=== PATIENT | female | born 1935 | race Caucasian/White ===

== ENCOUNTER 2022-05-13 11:24 | Inpatient (IN) | payer MEDICARE, OTHER, SELFPAY ==
[2022-05-13] VITALS (9 sets, daily range): BP systolic 94–169; BP diastolic 48–81; PULSE 101–120; RESP 15–28; TEMP 36.6–38.7; O2SAT 93–98; BMI 43.0
--- NOTE | ~2022-05-13 | XR_ITS ---
EXAMINATION: XR CHEST CLINICAL INFORMATION: Chest pain COMPARISON: None TECHNIQUE: 2 views of the chest were obtained. FINDINGS: The lungs are well expanded. There is no focal consolidation, edema, or effusion. No pneumothorax. The cardiomediastinal silhouette is within normal limits. No acute osseous abnormality. XR/XR chest 2V IMPRESSION: Clear lungs.
--- NOTE | ~2022-05-13 | CT_ITS ---
EXAMINATION: CT ABDOMEN AND PELVIS WITHOUT CONTRAST CLINICAL INFORMATION: Abdominal pain and diarrhea COMPARISON: None TECHNIQUE: Multidetector volumetric imaging was performed from the superior aspect of the liver through the pubic symphysis. Sagittal and coronal reformatted images were obtained on the technologist's workstation. This CT examination was performed using dose optimization techniques as appropriate, variously including the following: *Automated exposure control *Adjustment of mA and/or kV according to patient size (this includes techniques or standardized protocols for targeted exams where dose is matched to indication/reason for exam; i.e. extremities or head) *Use of iterative reconstruction technique DLP: 671 mGy-cm FINDINGS: LUNG BASES: Small patchy airspace consolidation and adjacent ill-defined nodular opacities in the peripheral right lower lobe additional smaller cluster of ill-defined nodular opacities in the left lung base, likely infectious/inflammatory. Minimal bibasilar subsegmental atelectasis. LIVER, GALLBLADDER, AND BILIARY TREE: The liver is normal in size, shape, and attenuation. No focal hepatic lesion. Status post cholecystectomy. Extra hepatic bile duct is dilated up to 1.4 cm proximally and tapers down to 1 cm more distally in the more distal pancreatic segment. No calcified CBD stone. No significant intrahepatic biliary ductal dilation. No comparisons available to assess for change. Correlate with LFTs for clinical significance. PANCREAS: Mildly atrophic. No pancreatic lesion or peripancreatic inflammatory change. SPLEEN: Unremarkable. ADRENAL GLANDS: Unremarkable. KIDNEYS AND URETERS: Small low-density probable cyst in the left mid pole, too small to characterize. No imaging follow-up recommended. No other renal lesions. No renal calculi or hydronephrosis. BLADDER: The bladder wall thickening. Small bubble of gas in the bladder, presumably iatrogenic. Correlate with recent catheterization. No surrounding perivesicular fat stranding. GASTROINTESTINAL TRACT: Extensive colonic diverticulosis most marked involving the sigmoid colon. No evidence of acute diverticulitis. No dilated bowel loops or bowel wall thickening. There is a overall moderate amount of formed stool in the colon. Small duodenal diverticulum at the level of the pancreatic head. Appendix not visualized. No inflammatory change the base of the cecum. No ascites or free air. ABDOMINAL WALL: No significant hernia is appreciated. LYMPH NODES: No lymphadenopathy. VASCULAR: Normal caliber abdominal aorta. Mild vascular calcifications. PELVIC VISCERA: Status post hysterectomy. OSSEOUS STRUCTURES: No acute fracture or suspicious osseous lesion. Grade 1 anterolisthesis at L4-L5 secondary to advanced facet arthrosis. Disc degenerative changes most marked at L4-L5 and L5-S1. CT/CT abdomen pelvis wo IV con IMPRESSION: 1. Extensive colonic diverticulosis. No evidence of acute diverticulitis or other acute intra-abdominal process. 2. Patchy airspace consolidation and adjacent ill-defined nodular opacities in the right lower lobe and smaller cluster of ill-defined nodular opacities in the left lung base, likely infectious/inflammatory. Correlate clinically with signs or symptoms of pneumonia. 3. Status post cholecystectomy. Extra hepatic bile duct dilation, as described. Correlate with LFTs for clinical significance. 4. Additional chronic findings, as described.
--- NOTE | ~2022-05-13 | CT_ITS ---
EXAMINATION: CT CHEST WITHOUT CONTRAST CLINICAL INFORMATION: Shortness of breath, tachypnea, tachycardia, and fever COMPARISON: Chest x-ray performed earlier the same day TECHNIQUE: Multidetector volumetric CT imaging of the chest was done. Axial MIP volume rendering provided. Sagittal and coronal reformatted images were obtained. This CT examination was performed using dose optimization techniques as appropriate, variously including the following: *Automated exposure control *Adjustment of mA and/or kV according to patient size (this includes techniques or standardized protocols for targeted exams where dose is matched to indication/reason for exam; i.e. extremities or head) *Use of iterative reconstruction technique DLP: 298 mGy-cm FINDINGS: LUNGS: Patchy consolidative opacity in the lateral inferior right lung base/costophrenic angle. There are numerous additional patchy/nodular groundglass and/or small consolidative opacities scattered within the bilateral upper and lower lobes as well suspicious for multifocal pneumonia, please see ocampo images for examples. No cavitary lesions. No other areas of confluent airspace consolidation. No appreciable emphysematous change. Central through segmental airways are clear. MEDIASTINUM: No cardiomegaly or pericardial effusion. Normal caliber thoracic aorta. No aneurysm. Mild aortic vascular calcifications. Normal caliber main pulmonary arteries. Small nonpathologically enlarged mediastinal lymph nodes. No mediastinal or hilar lymphadenopathy by size criteria. Largest lymph node is a 0.9 cm right paratracheal node. CORONARY ARTERY CALCIFICATION: Mild three-vessel coronary artery vascular calcifications present. PLEURA: No pleural effusion or pneumothorax. AXILLA: No lymphadenopathy. UPPER ABDOMEN: Status post cholecystectomy. Extra hepatic bile ducts dilated up to 1.4 cm in diameter proximally. No significant intrahepatic biliary ductal dilation identified. Mild to moderate fatty atrophy of the pancreas. Visualized upper abdominal viscera is unremarkable. Possible small hiatal hernia. OSSEOUS STRUCTURES: No acute fracture or suspicious osseous lesion. Partial ankylosis the anterior aspect of the T6-T8 vertebral bodies. Mild multilevel degenerative disc disease in the thoracic spine. Mildly exaggerated thoracic kyphosis. CT/CT chest wo IV con IMPRESSION: 1. Patchy consolidative opacity in the lateral inferior right lung base and numerous additional patchy/nodular groundglass and/or small consolidative opacities scattered throughout the bilateral upper and lower lobes, suspicious for multifocal infection/pneumonia. No cavitary lesions to suggest more specific evidence of septic emboli. 2. No pleural effusion. 3. Status post cholecystectomy with dilated extra hepatic bile ducts. Correlate with LFTs for clinical significance.
--- NOTE | 2022-05-13 11:31 | ECG_ITS ---
Test Reason : cp Blood Pressure : / mmHG Vent. Rate : 103 BPM Atrial Rate : 103 BPM P-R Int : 132 ms QRS Dur : 074 ms QT Int : 344 ms P-R-T Axes : 052 024 044 degrees QTc Int : 450 ms Sinus tachycardia Nonspecific ST and T wave abnormality Abnormal ECG No previous ECGs available Referred By: Generic ED Physician Electronically Signed By:ALEXANDRA TERRAZAS MD
--- NOTE | 2022-05-13 11:37 | ED.GENADULT ---
HPI - General Adult General Chief complaint: Dyspnea <JUANITA Brady - Last Filed: 05/13/22 11:44> Stated complaint: CP Dizziness Diff Breathing <JUANITA Brady - Last Filed: 05/13/22 11:44> Time Seen by Provider: 05/13/22 15:18 <JUANITA Brady - Last Filed: 05/13/22 11:44> Source: patient and family (Daughter) <Angélica Daly MD - Last Filed: 05/13/22 18:32> Mode of arrival: ambulatory <Angélica Daly MD - Last Filed: 05/13/22 18:32> History of Present Illness HPI narrative: 86-year-old female who presents with increasing dyspnea on exertion, orthopnea, she stop taking her Lasix approximately 1 week ago but complains of worsening bilateral ankle edema. Patient also reports cough and does have a history of asthma. Otherwise, she denies any fever, chills, GI or symptoms. <Angélica Daly MD - Last Filed: 05/13/22 18:32> Related Data Allergies/adverse reactions: Allergies Allergy/AdvReac Type Severity Reaction Status Date / Time aspirin [ASPIRIN] Allergy Intermediate BURNING Unverified 12/19/19 16:02 STOMACH lisinopril [LISINOPRIL] Allergy Unknown COUGH Unverified 12/19/19 16:02 penicillin V Allergy Unknown Verified 08/20/14 00:00 Penicillins [PCN] Allergy Unknown UNK Unverified 12/19/19 16:02 sulfamethoxazole Allergy Unknown UNKNOWN Unverified 12/19/19 16:02 [From BACTRIM] trimethoprim [From BACTRIM] Allergy Unknown UNKNOWN Unverified 12/19/19 16:02 <JUANITA Brady - Last Filed: 05/13/22 11:44> Review of Systems Review of Systems: Pertinent positives and negatives as stated in HPI <Angélica Daly MD - Last Filed: 05/13/22 18:32> PMFSH Past Medical History Source: nursing notes reviewed <Angélica Daly MD - Last Filed: 05/13/22 18:32> Social History Social History: Social History Alcohol intake: never Smoked in Last 30 Days: No Advance Directives: Yes Advance Directives on File: Yes Advance Directives Date on File: 05/13/22 <JUANITA Brady - Last Filed: 05/13/22 11:44> Physical Exam ED Vital Signs: Vital Signs - 24 hr 05/13/22 11:37 05/13/22 14:39 05/13/22 15:29 Temperature 98 F 98.6 F Pulse Rate 106 H 101 H 108 H Respiratory Rate 20 16 15 Blood Pressure 160/48 H 168/80 H Pulse Oximetry 96 98 Oxygen Delivery Method Room Air Room Air 05/13/22 15:39 05/13/22 16:27 05/13/22 18:00 Temperature 98.7 F 99.6 F Pulse Rate 104 H 120 H 111 H Respiratory Rate 16 28 H 16 Blood Pressure 169/81 H 153/69 H 146/57 H Pulse Oximetry 97 96 94 Oxygen Delivery Method Room Air Room Air Room Air BMI result Body Mass Index 43.0 <JUANITA Brady - Last Filed: 05/13/22 11:44> Vital Signs - 24 hr 05/13/22 11:37 05/13/22 14:39 05/13/22 15:29 Temperature 98 F 98.6 F Pulse Rate 106 H 101 H 108 H Respiratory Rate 20 16 15 Blood Pressure 160/48 H 168/80 H Pulse Oximetry 96 98 Oxygen Delivery Method Room Air Room Air 05/13/22 15:39 05/13/22 16:27 05/13/22 18:00 Temperature 98.7 F 99.6 F Pulse Rate 104 H 120 H 111 H Respiratory Rate 16 28 H 16 Blood Pressure 169/81 H 153/69 H 146/57 H Pulse Oximetry 97 96 94 Oxygen Delivery Method Room Air Room Air Room Air BMI result Body Mass Index 43.0 VITAL SIGNS: Reviewed. GENERAL: Well developed, well nourished, in no acute distress. HEAD: Normocephalic/atraumatic EYES: PERRLA, EOMI EARS: Ext canals without abnormality OROPHARYNX: no oral lesions noted, posterior pharynx clear LUNGS: Obvious tachypnea with difficulty completing entire sentences, coarse rales noted to mid bilateral chest/crackles. SpO2<96> CARDIOVASCULAR: Regular rate and rhythm without noted murmurs, no JVD but bilateral lower extremity 1+ pitting edema ABDOMEN: Soft, non-tender, non-distended with bowel sounds. MUSCULOSKELETAL: No tenderness, deformities, or effusions noted on gross inspection. EXTREMITIES: No cyanosis, clubbing or edema. SKIN: Inspection of the skin reveals no rashes NEUROLOGIC: Alert and oriented x 4. Strength and sensation to light touch were grossly intact x 4. <Angélica Daly MD - Last Filed: 05/13/22 18:32> Course Course Course Narrative: RME- 11:35am 86yoF c PMHX of anemia, hypothyroidism, asthma, HTN and CHF who is presenting to the ED c c/o of URI symptoms which include chills, fatigues, malaise, cough with sputum production, with chest tightness, SOB, HUTCHINS, orthopnea, leg swelling x 1 week worse today. Apparently daughter and had similar symptoms and were diagnosed RSV. Although patient reports that she has not been taking her water pill for the past week ?I haven't been taking it because then I have to go to the bathroom too much while I'm in [place]?. On exam patient has decreased breath sounds although oxygen saturation 96% on room air. Otherwise all other vitals are within normal limits. Patient noted to have wheezes. No rales/rhonchi noted. No accessory muscle use is noted. Although patient is noted to have +2 lower extremity pitting edema. CV RRR. Plan: Labs, EKG, COVID/RSV/flu swab and chest x-ray ordered at this time. Patient will be sent back to the waiting room to be evaluated in the ED. <JUANITA Brady - Last Filed: 05/13/22 11:44> Medications Administered Discontinued Medications Generic Name Dose Route Start Last Admin Trade Name Frecara PRN Reason Stop Dose Admin Albuterol Sulfate 5 mg 05/13/22 15:18 05/13/22 15:26 Albuterol Sulfate (0.083%) 2.5 Mg/3 Ml Vial.Neb INHALE 05/13/22 15:19 5 mg ONCE ONE Administration Furosemide 60 mg 05/13/22 16:09 05/13/22 16:26 Furosemide 100 Mg/10 Ml Vial IVPUSH 05/13/22 16:10 60 mg ONCE ONE Administration Protocol <JUANITA Brady - Last Filed: 05/13/22 11:44> Medications Administered Discontinued Medications Generic Name Dose Route Start Last Admin Trade Name Patoq PRN Reason Stop Dose Admin Albuterol Sulfate 5 mg 05/13/22 15:18 05/13/22 15:26 Albuterol Sulfate (0.083%) 2.5 Mg/3 Ml Vial.Neb INHALE 05/13/22 15:19 5 mg ONCE ONE Administration Furosemide 60 mg 05/13/22 16:09 05/13/22 16:26 Furosemide 100 Mg/10 Ml Vial IVPUSH 05/13/22 16:10 60 mg ONCE ONE Administration Protocol <Angélica Daly MD - Last Filed: 05/13/22 18:32> Medical Decision Making Medical Decision Making MDM Narrative: 86-year-old female who presents with worsening dyspnea on exertion and all clinical history is consistent with CHF exacerbation, BNP is elevated and there is bilateral lower extremity edema. Although the chest x-ray is read as clear lungs? I do not agree with this. Patient given 60 mg of Lasix, patient did also receive a DuoNeb treatment. Suspect that the leukocytosis is associated with stress/reactive response as patient is afebrile. <Angélica Daly MD - Last Filed: 05/13/22 18:32> Differential Diagnosis Differential Diagnoses: The differential diagnosis associated with the presentation includes <Angélica Daly MD - Last Filed: 05/13/22 18:32> Please see the discussion above <Angélica Daly MD - Last Filed: 05/13/22 18:32> Consult Healthcare Provider Management of the patient was discussed with: Hospitalist <Angélica Daly MD - Last Filed: 05/13/22 18:32> 1730: I discussed with the inpatient hospitalist who accepts admission. <Angélica Daly MD - Last Filed: 05/13/22 18:32> Lab Data [facility] Lab Attestation statement: I reviewed the patient's lab results. <Angélica Daly MD - Last Filed: 05/13/22 18:32> Please see the discussion above <Angélica Daly MD - Last Filed: 05/13/22 18:32> Result Diagrams: 05/13/22 11:47 05/13/22 11:47 <JUANITA Brady - Last Filed: 05/13/22 11:44> Labs: Lab Results 05/13/22 05/13/22 05/13/22 Range/Units 11:47 11:47 11:47 WBC 15.2 H (4.8-10.8) X10*3/uL RBC 3.37 L (4.20-5.50) X10*6/uL Hgb 11.0 L (12.0-16.0) g/dl Hct 33.8 L (37.0-47.0) % MCV 100.3 H (80.0-98.0) fL MCH 32.6 (27.0-33.0) pg MCHC 32.5 (31.0-35.0) g/dl RDW 12.1 (11.0-16.0) % Plt Count 217 (160-400) X10*3/uL MPV 10.9 (9.4-12.3) fL Immature Gran % (Auto) 0.4 (0.0-0.4) % Neut % (Auto) 78.3 H (45-73) % Lymph % (Auto) 12.3 L (20-40) % [place] % (Auto) 8.4 (2-11) % Eos % (Auto) 0.1 (0-4) % Baso % (Auto) 0.5 (0-2) % Lymph # (Auto) 1.9 (1.2-4.9) X10*3/uL [place] # (Auto) 1.3 H (0.1-1.2) X10*3/uL Eos # (Auto) 0.0 (0.0-0.4) X10*3/uL Baso # (Auto) 0.1 (0.0-0.2) X10*3/uL Abs Immat Gran (auto) 0.06 H (0.00-0.03) X10*3/uL Absolute Neuts (auto) 11.9 H (2.0-8.3) x10*3/uL Absolute Nucleated RBC 0.000 (0.0-0.012) X10*3/uL Nucleated RBC % (auto) 0.0 (0.0-0.2) /100WBC PT 13.1 (10.0-13.1) SEC INR 1.1 (0.9-1.1) Sodium 140 (135-145) mmol/L Potassium 4.3 (3.3-5.1) mmol/L Chloride 106 (96-108) mmol/L Carbon Dioxide 24 (22-29) mmol/L Anion Gap 14 (12-20) BUN 11 (9-16) mg/dL Creatinine 0.72 (0.5-1.4) mg/dL Estim Creat Clear Calc 58.4 Estimated GFR > 60 Random Glucose 124 H (60-115) mg/dL Calcium 9.2 (8.4-10.2) mg/dL Magnesium 1.6 (1.6-2.6) mg/dL Total Bilirubin 1.2 H (0.0-1.0) mg/dL AST 19 (5-31) U/L ALT 11 (0-31) U/L Alkaline Phosphatase 78 (39-117) U/L Troponin I High Sens (<3.5-17.0) ng/L B-Natriuretic Peptide (<100) pg/mL Total Protein 6.9 (6.5-8.0) g/dL Albumin 3.7 (3.5-5.0) g/dL Urine Color Urine Appearance Urine pH (5.0-9.0) Ur Specific [place] (1.005-1.025) Urine Protein (Neg-Trace) mg/dL Urine Glucose (UA) (Negative) mg/dL Urine Ketones (Negative) mg/dL Urine Blood (Negative) Urine Nitrite (Negative) Ur Leukocyte Esterase (Negative) Urine RBC (0-2) /HPF Urine WBC (0-5) /HPF Ur Squamous Epith Cells (0-2) /HPF Urine Bacteria (None Seen) Hyaline Casts (0-2) /LPF Influenza Type A (PCR) (Negative) Influenza Type B (PCR) (Negative) RSV RNA Qual (PCR) (Negative) SARS-CoV-2 RNA (RT-PCR) (Negative) 05/13/22 05/13/22 05/13/22 Range/Units 11:47 11:47 11:47 WBC (4.8-10.8) X10*3/uL RBC (4.20-5.50) X10*6/uL Hgb (12.0-16.0) g/dl Hct (37.0-47.0) % MCV (80.0-98.0) fL MCH (27.0-33.0) pg MCHC (31.0-35.0) g/dl RDW (11.0-16.0) % Plt Count (160-400) X10*3/uL MPV (9.4-12.3) fL Immature Gran % (Auto) (0.0-0.4) % Neut % (Auto) (45-73) % Lymph % (Auto) (20-40) % [place] % (Auto) (2-11) % Eos % (Auto) (0-4) % Baso % (Auto) (0-2) % Lymph # (Auto) (1.2-4.9) X10*3/uL [place] # (Auto) (0.1-1.2) X10*3/uL Eos # (Auto) (0.0-0.4) X10*3/uL Baso # (Auto) (0.0-0.2) X10*3/uL Abs Immat Gran (auto) (0.00-0.03) X10*3/uL Absolute Neuts (auto) (2.0-8.3) x10*3/uL Absolute Nucleated RBC (0.0-0.012) X10*3/uL Nucleated RBC % (auto) (0.0-0.2) /100WBC PT (10.0-13.1) SEC INR (0.9-1.1) Sodium (135-145) mmol/L Potassium (3.3-5.1) mmol/L Chloride (96-108) mmol/L Carbon Dioxide (22-29) mmol/L Anion Gap (12-20) BUN (9-16) mg/dL Creatinine (0.5-1.4) mg/dL Estim Creat Clear Calc Estimated GFR Random Glucose (60-115) mg/dL Calcium (8.4-10.2) mg/dL Magnesium (1.6-2.6) mg/dL Total Bilirubin (0.0-1.0) mg/dL AST (5-31) U/L ALT (0-31) U/L Alkaline Phosphatase (39-117) U/L Troponin I High Sens 8.9 (<3.5-17.0) ng/L B-Natriuretic Peptide 288 H (<100) pg/mL Total Protein (6.5-8.0) g/dL Albumin (3.5-5.0) g/dL Urine Color Urine Appearance Urine pH (5.0-9.0) Ur Specific [place] (1.005-1.025) Urine Protein (Neg-Trace) mg/dL Urine Glucose (UA) (Negative) mg/dL Urine Ketones (Negative) mg/dL Urine Blood (Negative) Urine Nitrite (Negative) Ur Leukocyte Esterase (Negative) Urine RBC (0-2) /HPF Urine WBC (0-5) /HPF Ur Squamous Epith Cells (0-2) /HPF Urine Bacteria (None Seen) Hyaline Casts (0-2) /LPF Influenza Type A (PCR) NEGATIVE (Negative) Influenza Type B (PCR) NEGATIVE (Negative) RSV RNA Qual (PCR) NEGATIVE (Negative) SARS-CoV-2 RNA (RT-PCR) NEGATIVE (Negative) 05/13/22 05/13/22 Range/Units 15:38 17:31 WBC (4.8-10.8) X10*3/uL RBC (4.20-5.50) X10*6/uL Hgb (12.0-16.0) g/dl Hct (37.0-47.0) % MCV (80.0-98.0) fL MCH (27.0-33.0) pg MCHC (31.0-35.0) g/dl RDW (11.0-16.0) % Plt Count (160-400) X10*3/uL MPV (9.4-12.3) fL Immature Gran % (Auto) (0.0-0.4) % Neut % (Auto) (45-73) % Lymph % (Auto) (20-40) % [place] % (Auto) (2-11) % Eos % (Auto) (0-4) % Baso % (Auto) (0-2) % Lymph # (Auto) (1.2-4.9) X10*3/uL [place] # (Auto) (0.1-1.2) X10*3/uL Eos # (Auto) (0.0-0.4) X10*3/uL Baso # (Auto) (0.0-0.2) X10*3/uL Abs Immat Gran (auto) (0.00-0.03) X10*3/uL Absolute Neuts (auto) (2.0-8.3) x10*3/uL Absolute Nucleated RBC (0.0-0.012) X10*3/uL Nucleated RBC % (auto) (0.0-0.2) /100WBC PT (10.0-13.1) SEC INR (0.9-1.1) Sodium (135-145) mmol/L Potassium (3.3-5.1) mmol/L Chloride (96-108) mmol/L Carbon Dioxide (22-29) mmol/L Anion Gap (12-20) BUN (9-16) mg/dL Creatinine (0.5-1.4) mg/dL Estim Creat Clear Calc Estimated GFR Random Glucose (60-115) mg/dL Calcium (8.4-10.2) mg/dL Magnesium (1.6-2.6) mg/dL Total Bilirubin (0.0-1.0) mg/dL AST (5-31) U/L ALT (0-31) U/L Alkaline Phosphatase (39-117) U/L Troponin I High Sens 9.2 (<3.5-17.0) ng/L B-Natriuretic Peptide (<100) pg/mL Total Protein (6.5-8.0) g/dL Albumin (3.5-5.0) g/dL Urine Color Yellow Urine Appearance Clear Urine pH 5.5 (5.0-9.0) Ur Specific [place] <= 1.005 (1.005-1.025) Urine Protein Negative (Neg-Trace) mg/dL Urine Glucose (UA) Negative (Negative) mg/dL Urine Ketones Negative (Negative) mg/dL Urine Blood Negative (Negative) Urine Nitrite Negative (Negative) Ur Leukocyte Esterase Trace H (Negative) Urine RBC 3-5 H (0-2) /HPF Urine WBC 0-5 (0-5) /HPF Ur Squamous Epith Cells 0-2 (0-2) /HPF Urine Bacteria 2+ (None Seen) Hyaline Casts 0-2 (0-2) /LPF Influenza Type A (PCR) (Negative) Influenza Type B (PCR) (Negative) RSV RNA Qual (PCR) (Negative) SARS-CoV-2 RNA (RT-PCR) (Negative) <Jackelin Brooks, PA - Last Filed: 05/13/22 11:44> Lab Results 05/13/22 05/13/22 05/13/22 Range/Units 11:47 11:47 11:47 WBC 15.2 H (4.8-10.8) X10*3/uL RBC 3.37 L (4.20-5.50) X10*6/uL Hgb 11.0 L (12.0-16.0) g/dl Hct 33.8 L (37.0-47.0) % MCV 100.3 H (80.0-98.0) fL MCH 32.6 (27.0-33.0) pg MCHC 32.5 (31.0-35.0) g/dl RDW 12.1 (11.0-16.0) % Plt Count 217 (160-400) X10*3/uL MPV 10.9 (9.4-12.3) fL Immature Gran % (Auto) 0.4 (0.0-0.4) % Neut % (Auto) 78.3 H (45-73) % Lymph % (Auto) 12.3 L (20-40) % [place] % (Auto) 8.4 (2-11) % Eos % (Auto) 0.1 (0-4) % Baso % (Auto) 0.5 (0-2) % Lymph # (Auto) 1.9 (1.2-4.9) X10*3/uL [place] # (Auto) 1.3 H (0.1-1.2) X10*3/uL Eos # (Auto) 0.0 (0.0-0.4) X10*3/uL Baso # (Auto) 0.1 (0.0-0.2) X10*3/uL Abs Immat Gran (auto) 0.06 H (0.00-0.03) X10*3/uL Absolute Neuts (auto) 11.9 H (2.0-8.3) x10*3/uL Absolute Nucleated RBC 0.000 (0.0-0.012) X10*3/uL Nucleated RBC % (auto) 0.0 (0.0-0.2) /100WBC PT 13.1 (10.0-13.1) SEC INR 1.1 (0.9-1.1) Sodium 140 (135-145) mmol/L Potassium 4.3 (3.3-5.1) mmol/L Chloride 106 (96-108) mmol/L Carbon Dioxide 24 (22-29) mmol/L Anion Gap 14 (12-20) BUN 11 (9-16) mg/dL Creatinine 0.72 (0.5-1.4) mg/dL Estim Creat Clear Calc 58.4 Estimated GFR > 60 Random Glucose 124 H (60-115) mg/dL Calcium 9.2 (8.4-10.2) mg/dL Magnesium 1.6 (1.6-2.6) mg/dL Total Bilirubin 1.2 H (0.0-1.0) mg/dL AST 19 (5-31) U/L ALT 11 (0-31) U/L Alkaline Phosphatase 78 (39-117) U/L Troponin I High Sens (<3.5-17.0) ng/L B-Natriuretic Peptide (<100) pg/mL Total Protein 6.9 (6.5-8.0) g/dL Albumin 3.7 (3.5-5.0) g/dL Urine Color Urine Appearance Urine pH (5.0-9.0) Ur Specific [place] (1.005-1.025) Urine Protein (Neg-Trace) mg/dL Urine Glucose (UA) (Negative) mg/dL Urine Ketones (Negative) mg/dL Urine Blood (Negative) Urine Nitrite (Negative) Ur Leukocyte Esterase (Negative) Urine RBC (0-2) /HPF Urine WBC (0-5) /HPF Ur Squamous Epith Cells (0-2) /HPF Urine Bacteria (None Seen) Hyaline Casts (0-2) /LPF Influenza Type A (PCR) (Negative) Influenza Type B (PCR) (Negative) RSV RNA Qual (PCR) (Negative) SARS-CoV-2 RNA (RT-PCR) (Negative) 05/13/22 05/13/22 05/13/22 Range/Units 11:47 11:47 11:47 WBC (4.8-10.8) X10*3/uL RBC (4.20-5.50) X10*6/uL Hgb (12.0-16.0) g/dl Hct (37.0-47.0) % MCV (80.0-98.0) fL MCH (27.0-33.0) pg MCHC (31.0-35.0) g/dl RDW (11.0-16.0) % Plt Count (160-400) X10*3/uL MPV (9.4-12.3) fL Immature Gran % (Auto) (0.0-0.4) % Neut % (Auto) (45-73) % Lymph % (Auto) (20-40) % [place] % (Auto) (2-11) % Eos % (Auto) (0-4) % Baso % (Auto) (0-2) % Lymph # (Auto) (1.2-4.9) X10*3/uL [place] # (Auto) (0.1-1.2) X10*3/uL Eos # (Auto) (0.0-0.4) X10*3/uL Baso # (Auto) (0.0-0.2) X10*3/uL Abs Immat Gran (auto) (0.00-0.03) X10*3/uL Absolute Neuts (auto) (2.0-8.3) x10*3/uL Absolute Nucleated RBC (0.0-0.012) X10*3/uL Nucleated RBC % (auto) (0.0-0.2) /100WBC PT (10.0-13.1) SEC INR (0.9-1.1) Sodium (135-145) mmol/L Potassium (3.3-5.1) mmol/L Chloride (96-108) mmol/L Carbon Dioxide (22-29) mmol/L Anion Gap (12-20) BUN (9-16) mg/dL Creatinine (0.5-1.4) mg/dL Estim Creat Clear Calc Estimated GFR Random Glucose (60-115) mg/dL Calcium (8.4-10.2) mg/dL Magnesium (1.6-2.6) mg/dL Total Bilirubin (0.0-1.0) mg/dL AST (5-31) U/L ALT (0-31) U/L Alkaline Phosphatase (39-117) U/L Troponin I High Sens 8.9 (<3.5-17.0) ng/L B-Natriuretic Peptide 288 H (<100) pg/mL Total Protein (6.5-8.0) g/dL Albumin (3.5-5.0) g/dL Urine Color Urine Appearance Urine pH (5.0-9.0) Ur Specific [place] (1.005-1.025) Urine Protein (Neg-Trace) mg/dL Urine Glucose (UA) (Negative) mg/dL Urine Ketones (Negative) mg/dL Urine Blood (Negative) Urine Nitrite (Negative) Ur Leukocyte Esterase (Negative) Urine RBC (0-2) /HPF Urine WBC (0-5) /HPF Ur Squamous Epith Cells (0-2) /HPF Urine Bacteria (None Seen) Hyaline Casts (0-2) /LPF Influenza Type A (PCR) NEGATIVE (Negative) Influenza Type B (PCR) NEGATIVE (Negative) RSV RNA Qual (PCR) NEGATIVE (Negative) SARS-CoV-2 RNA (RT-PCR) NEGATIVE (Negative) 05/13/22 05/13/22 Range/Units 15:38 17:31 WBC (4.8-10.8) X10*3/uL RBC (4.20-5.50) X10*6/uL Hgb (12.0-16.0) g/dl Hct (37.0-47.0) % MCV (80.0-98.0) fL MCH (27.0-33.0) pg MCHC (31.0-35.0) g/dl RDW (11.0-16.0) % Plt Count (160-400) X10*3/uL MPV (9.4-12.3) fL Immature Gran % (Auto) (0.0-0.4) % Neut % (Auto) (45-73) % Lymph % (Auto) (20-40) % [place] % (Auto) (2-11) % Eos % (Auto) (0-4) % Baso % (Auto) (0-2) % Lymph # (Auto) (1.2-4.9) X10*3/uL [place] # (Auto) (0.1-1.2) X10*3/uL Eos # (Auto) (0.0-0.4) X10*3/uL Baso # (Auto) (0.0-0.2) X10*3/uL Abs Immat Gran (auto) (0.00-0.03) X10*3/uL Absolute Neuts (auto) (2.0-8.3) x10*3/uL Absolute Nucleated RBC (0.0-0.012) X10*3/uL Nucleated RBC % (auto) (0.0-0.2) /100WBC PT (10.0-13.1) SEC INR (0.9-1.1) Sodium (135-145) mmol/L Potassium (3.3-5.1) mmol/L Chloride (96-108) mmol/L Carbon Dioxide (22-29) mmol/L Anion Gap (12-20) BUN (9-16) mg/dL Creatinine (0.5-1.4) mg/dL Estim Creat Clear Calc Estimated GFR Random Glucose (60-115) mg/dL Calcium (8.4-10.2) mg/dL Magnesium (1.6-2.6) mg/dL Total Bilirubin (0.0-1.0) mg/dL AST (5-31) U/L ALT (0-31) U/L Alkaline Phosphatase (39-117) U/L Troponin I High Sens 9.2 (<3.5-17.0) ng/L B-Natriuretic Peptide (<100) pg/mL Total Protein (6.5-8.0) g/dL Albumin (3.5-5.0) g/dL Urine Color Yellow Urine Appearance Clear Urine pH 5.5 (5.0-9.0) Ur Specific [place] <= 1.005 (1.005-1.025) Urine Protein Negative (Neg-Trace) mg/dL Urine Glucose (UA) Negative (Negative) mg/dL Urine Ketones Negative (Negative) mg/dL Urine Blood Negative (Negative) Urine Nitrite Negative (Negative) Ur Leukocyte Esterase Trace H (Negative) Urine RBC 3-5 H (0-2) /HPF Urine WBC 0-5 (0-5) /HPF Ur Squamous Epith Cells 0-2 (0-2) /HPF Urine Bacteria 2+ (None Seen) Hyaline Casts 0-2 (0-2) /LPF Influenza Type A (PCR) (Negative) Influenza Type B (PCR) (Negative) RSV RNA Qual (PCR) (Negative) SARS-CoV-2 RNA (RT-PCR) (Negative) <Angélica Daly MD - Last Filed: 05/13/22 18:32> Independent Interpretation I performed an independent interpretation of an: EKG <Angélica Daly MD - Last Filed: 05/13/22 18:32> Interpretation: Sinus tachycardia, HR-103, no STEMI, [place]/QRS/QTC are within normal limits. <Angélica Daly MD - Last Filed: 05/13/22 18:32> Radiology Impression Radiologist Impression: I do not agree with radiologist's impression, my interpretation is that the chest x-ray is consistent with patchiness what would appear to be Nina B lines <Angélica Daly MD - Last Filed: 05/13/22 18:32> Independent Historian Clinical information obtained from an independent historian. History obtained from or confirmed by: Other <Angélica Daly MD - Last Filed: 05/13/22 18:32> Daughter <Angélica Daly MD - Last Filed: 05/13/22 18:32> Critical Care Time Critical Care Time Critical Care Time: Yes <Angélica Daly MD - Last Filed: 05/13/22 18:32> Total Critical Care Time: 30 <Angélica Daly MD - Last Filed: 05/13/22 18:32> Attestation: I personally attest to this time spent taking care of the patient. <Angélica Daly MD - Last Filed: 05/13/22 18:32> Discharge Plan Discharge Clinical Impression: CHF exacerbation <JUANITA Brady - Last Filed: 05/13/22 11:44> Patient Disposition: Admitted As Inpatient <JUANITA Brady - Last Filed: 05/13/22 11:44>
[2022-05-13 11:53] LABS: MANUAL DIFF FLAG NO
[2022-05-13 12:00] LABS: Basophils Absolute Auto 0.1 X10*3/uL (0.0-0.2); Basophils Percent Auto 0.5 % (0-2); Eosinophils Percent Auto 0.1 % (0-4); Hematocrit 33.8 % (37.0-47.0); INTERNATIONAL NORM RATIO 1.1 (0.9-1.1); Imm Gran Abs Auto 0.06 X10*3/uL (0.00-0.03); Imm Gran Pct Auto 0.4 % (0.0-0.4); Lymphocytes Absolute Auto 1.9 X10*3/uL (1.2-4.9); Lymphocytes Percent Auto 12.3 % (20-40); Mean Corpuscular HGB Conc 32.5 g/dl (31.0-35.0); Mean Corpuscular Hemoglobin 32.6 pg (27.0-33.0); Mean Corpuscular Volume 100.3 fL (80.0-98.0); Mean Platelet Volume 10.9 fL (9.4-12.3); Monocytes Absolute Auto 1.3 X10*3/uL (0.1-1.2); Monocytes Percent Auto 8.4 % (2-11); Neutrophils Absolute Auto 11.9 x10*3/uL (2.0-8.3); Neutrophils Percent Auto 78.3 % (45-73); Platelet Count 217 X10*3/uL (160-400); Prothrombin Time 13.1 SEC (10.0-13.1); Red Blood Count 3.37 X10*6/uL (4.20-5.50); Red Cell Distribution Width 12.1 % (11.0-16.0); White Blood Count 15.2 X10*3/uL (4.8-10.8)
[2022-05-13 12:25] LABS: Alanine Aminotransferase 11 U/L (0-31); Albumin Level 3.7 g/dL (3.5-5.0); Alkaline Phosphatase 78 U/L (39-117); Anion Gap 14 (12-20); Aspartate Amino Transferase 19 U/L (5-31); Bilirubin Total 1.2 mg/dL (0.0-1.0); Blood Urea Nitrogen 11 mg/dL (9-16); Calcium 9.2 mg/dL (8.4-10.2); Carbon Dioxide 24 mmol/L (22-29); Chloride 106 mmol/L (96-108); Creatinine Clr Calc Pharmacy 58.4; Estimated Glomerular Filt Rate > 60; Glucose Random 124 mg/dL (60-115); Magnesium 1.6 mg/dL (1.6-2.6); Potassium 4.3 mmol/L (3.3-5.1); Sodium 140 mmol/L (135-145); Total Protein 6.9 g/dL (6.5-8.0)
[2022-05-13 12:28] LABS: B Type Natriuretic Peptide 288 pg/mL (<100)
[2022-05-13 12:32] LABS: Troponin-I High Sensitivity 8.9 ng/L (<3.5-17.0)
[2022-05-13 12:41] LABS: Influenza A PCR NEGATIVE (Negative); Influenza B PCR NEGATIVE (Negative); Resp Syncy Virus RNA Qual PCR NEGATIVE (Negative); SARS COV2 PCR INHOUSE NEGATIVE (Negative)
[2022-05-13] MEDS: Albuterol Sulfate (0.083%) 2.5 MG/3 ML VIAL.NEB 5 MG INHALE (15:26)
--- NOTE | 2022-05-13 15:40 | MHC.EDTECH ---
this pct assumed care of pt at 1500 ,repeated trop drawn and send to lab ,vitals sign taken ,pt daughter at bedside ,pt having her breathing treatment and watching television ,call valencia within reach .
[2022-05-13 16:06] LABS: Troponin-I High Sensitivity 9.2 ng/L (<3.5-17.0)
--- NOTE | 2022-05-13 16:21 | MHC.EDTECH ---
Addendum entered by Octavia Santizo 05/13/22 22:18: patient requested to have pure wick removed .but decided to have it place before going to sleep pt was incontinent of urine ,care given bedding change ,stool sample send to lab ,warm blanket given . Original Note: pt requested pure wick to be place ,because she was going to be on Lasix ,also warm blanket given ,rn kelvin is aware of pure wick in place .
[2022-05-13] MEDS: Furosemide 100 MG/10 ML VIAL 60 MG IVPUSH (16:26)
--- NOTE | 2022-05-13 16:57 | MHC.EDTECH ---
patient was assisted unto bedside commode ,pt voided 400 ml ,and had a medium bowel movement care given ,pt was assisted back to bed .
[2022-05-13 17:37] LABS: Appearance Urine Clear; Color Urine Yellow; Glucose Urine UA Negative (Negative); Leukocyte Esterase Urine Trace (Negative); Nitrite Urine Negative (Negative); PH 5.5 (5.0-9.0); Specific Gravity - Urine <= 1.005 (1.005-1.025); UMIC TRIGGER UACC YES; Urine Blood Negative (Negative); Urine Ketones Negative (Negative); Urine Protein Negative (Neg-Trace)
[2022-05-13 17:53] LABS: Bacteria Urine 2+ (None Seen); Hyaline Casts Urine 0-2 /LPF (0-2); Squamous Epithelial Cell Urine 0-2 /HPF (0-2); WBC Urine 0-5 /HPF (0-5)
--- NOTE | 2022-05-13 17:58 | P.HPHOSP_ITS ---
History of Present Illness Date of Service: 05/13/22 <JUANITA Domínguez - Last Filed: 05/13/22 20:28> Attending physician on admission: Karen Law <JUANITA Domínguez - Last Filed: 05/13/22 20:28> Chief Complaint: Increasing SOB <JUANITA Domínguez - Last Filed: 05/13/22 20:28> Pt is an 86-year-old female with a PMH significant for?asthma, allergies, HTN, HLD, hypothyroidism, and CHF who presents to the ED with increasing SOB and cough. Pt states she developed a cough two weeks ago, occasionally productive of yellowish sputum. Around one week ago she also developed shortness of breath and chest tightness with breathing, especially with exertion. Pt notes when she walks from her building to her car she then has to rest and use her asthma inhaler, though she admits the inhaler doesn't really help. ?Of note, pt stopped taking her furosemide one week ago d/t not wanting to have to go to the bathroom when she was at [facility]. Pt presents today d/t significantly worsening SOB this morning. Pt also experiencing chills on and off for the past two weeks, and pt complains of lower right quadrant abdominal pain that began earlier today. Pt has a history of chronic constipation on daily Miralax, which she stopped one week ago d/t loose stools, which she has been experiencing daily since then. Of note, pt denies a history of CHF, but states she was in the hospital 4-5 years ago for SOB and 30+ lb weight gain after she switched her antihypertensive medication from a diuretic combination pill to an ACEI. Pt was treated with IV Lasix then. Pt In the ED patient was afebrile, but tachypneic up to120 and tachypneic to 28. Labs were significant for leukocytosis of 15.2, H&H of 11.0 over 33.8 elevated BNP of 288. UA negative for UTI. Patient tested negative for influenza types A and B, RSV, COVID. CXR showed no acute cardiopulmonary process seen, though there is the possibility of pulmonary edema.. EKG demonstrated sinus tachycardia with no evidence of ST elevations or depressions. Pt was treated with IV Lasix. Pt will be admitted to the hospital for treatment of further evaluation of CHF exacerbation. <JUANITA Domínguez - Last Filed: 05/13/22 20:28> [facility] Medical History: Medical History (Updated 05/13/22 @ 20:27 by JUANITA Domínguez) HTN (hypertension) <JUANITA Domínguez - Last Filed: 05/13/22 20:28> Surgical History: Surgical History (Updated 05/13/22 @ 20:27 by JUANITA Domínguez) History of appendectomy History of cholecystectomy History of hysterectomy <JUANITA Domínguez - Last Filed: 05/13/22 20:28> Social History: Social History Alcohol intake: never Smoked in Last 30 Days: No Advance Directives: Yes Advance Directives on File: Yes Advance Directives Date on File: 05/13/22 <JUANITA Domínguez - Last Filed: 05/13/22 20:28> Meds Allergies/Adverse reactions: Allergies Allergy/AdvReac Type Severity Reaction Status Date / Time aspirin [ASPIRIN] Allergy Intermediate BURNING Unverified 12/19/19 16:02 STOMACH lisinopril [LISINOPRIL] Allergy Unknown COUGH Unverified 12/19/19 16:02 penicillin V Allergy Unknown Verified 08/20/14 00:00 Penicillins [PCN] Allergy Unknown UNK Unverified 12/19/19 16:02 sulfamethoxazole Allergy Unknown UNKNOWN Unverified 12/19/19 16:02 [From BACTRIM] trimethoprim [From BACTRIM] Allergy Unknown UNKNOWN Unverified 12/19/19 16:02 <JUANITA Domínguez - Last Filed: 05/13/22 20:28> Active Medications: Current Medications Pharmacy Consult (Consult Rx Perform Med Rec) 1 each MISCELLANE ONCE PRN PRN Reason: Consult order <JUANITA Domínguez - Last Filed: 05/13/22 20:28> Home medications: Home Medications Medication Instructions Recorded Confirmed Last Taken Type albuterol sulfate 90 mcg/actuation 2 puff inhalation Q4H PRN 05/13/22 05/13/22 Unknown History aerosol inhaler Shortness Of Breath amlodipine 2.5 mg tablet 1 tab PO BEDTIME 05/13/22 05/13/22 05/12/22 History famotidine 20 mg tablet 1 tab PO BEDTIME 05/13/22 05/13/22 05/12/22 History fluticasone 250 mcg-salmeterol 50 1 puff inhalation BID 05/13/22 05/13/22 Unknown History mcg/dose blistr powdr for inhalation (Advair Diskus) furosemide 20 mg tablet 1 tab PO DAILY 05/13/22 05/13/22 05/13/22 History levothyroxine 25 mcg tablet 1 tab PO DAILY 05/13/22 05/13/22 05/13/22 History losartan 100 mg tablet 1 tab PO DAILY 05/13/22 05/13/22 05/13/22 History montelukast 10 mg tablet 1 tab PO BEDTIME 05/13/22 05/13/22 05/12/22 History pantoprazole 40 mg tablet,delayed 1 tab PO DAILY 05/13/22 05/13/22 05/13/22 History release pravastatin 20 mg tablet 1 tab PO DAILY 05/13/22 05/13/22 05/13/22 History <JUANITA Domínguez - Last Filed: 05/13/22 20:28> Physical Exam Vital Signs and Narrative: Vital Signs: Last Vital Signs Temp 98.7 F 05/13/22 15:39 Pulse 120 H 05/13/22 16:27 Resp 28 H 05/13/22 16:27 BP 153/69 H 05/13/22 16:27 Pulse Ox 96 05/13/22 16:27 O2 Del Method 05/13/22 16:27 BMI result Body Mass Index 43.0 <JUANITA Domínguez Last Filed: 05/13/22 20:28> Constitutional: Alert, in no acute distress. Mental Status: Oriented to person, place and time. Eyes: Pupils are equal, round, and reactive to light. Ear, Nose, and Throat: Oropharynx clear, mucous membranes moist. Ears and nose without deformities. Trachea midline. Respiratory: Diffuse crackles. Cardiovascular: S1, S2 regular. No murmurs, rubs, or gallops. Gastrointestinal: Abdomen soft, tender in lower right quadrant with deep palpation. Non-distended. Normal bowel sounds. Neurologic: Cranial nerves II-XII are grossly intact. No focal neurological deficits. Moves all extremities spontaneously. Skin: No rashes or lesions noted. Musculoskeletal: No cyanosis or clubbing. Extremities: 1+ pitting edema lower legs bilaterally. Psychiatric: Normal mood and affect. <JUANITA Domínguez - Last Filed: 05/13/22 20:28> Results Labs CBC and Chem 7: 05/13/22 11:47 05/13/22 11:47 <JUANITA Domínguez - Last Filed: 05/13/22 20:28> Labs: Laboratory Results - last 24 hr 05/13/22 05/13/22 05/13/22 11:47 11:47 11:47 MCV 100.3 H MCH 32.6 MCHC 32.5 RDW 12.1 Plt Count 217 MPV 10.9 Immature Gran % (Auto) 0.4 Neut % (Auto) 78.3 H Lymph % (Auto) 12.3 L [place] % (Auto) 8.4 Eos % (Auto) 0.1 Baso % (Auto) 0.5 Lymph # (Auto) 1.9 [place] # (Auto) 1.3 H Eos # (Auto) 0.0 Baso # (Auto) 0.1 Abs Immat Gran (auto) 0.06 H Absolute Neuts (auto) 11.9 H Absolute Nucleated RBC 0.000 Nucleated RBC % (auto) 0.0 PT 13.1 INR 1.1 Anion Gap 14 Estim Creat Clear Calc 58.4 Estimated GFR > 60 Random Glucose 124 H Calcium 9.2 Magnesium 1.6 Total Bilirubin 1.2 H AST 19 ALT 11 Alkaline Phosphatase 78 Troponin I High Sens B-Natriuretic Peptide Total Protein 6.9 Albumin 3.7 Urine Color Urine Appearance Urine pH Ur Specific [place] Urine Protein Urine Glucose (UA) Urine Ketones Urine Blood Urine Nitrite Ur Leukocyte Esterase Urine RBC Urine WBC Ur Squamous Epith Cells Urine Bacteria Hyaline Casts Influenza Type A (PCR) Influenza Type B (PCR) RSV RNA Qual (PCR) SARS-CoV-2 RNA (RT-PCR) 05/13/22 05/13/22 05/13/22 11:47 11:47 11:47 MCV MCH MCHC RDW Plt Count MPV Immature Gran % (Auto) Neut % (Auto) Lymph % (Auto) [place] % (Auto) Eos % (Auto) Baso % (Auto) Lymph # (Auto) [place] # (Auto) Eos # (Auto) Baso # (Auto) Abs Immat Gran (auto) Absolute Neuts (auto) Absolute Nucleated RBC Nucleated RBC % (auto) PT INR Anion Gap Estim Creat Clear Calc Estimated GFR Random Glucose Calcium Magnesium Total Bilirubin AST ALT Alkaline Phosphatase Troponin I High Sens 8.9 B-Natriuretic Peptide 288 H Total Protein Albumin Urine Color Urine Appearance Urine pH Ur Specific [place] Urine Protein Urine Glucose (UA) Urine Ketones Urine Blood Urine Nitrite Ur Leukocyte Esterase Urine RBC Urine WBC Ur Squamous Epith Cells Urine Bacteria Hyaline Casts Influenza Type A (PCR) NEGATIVE Influenza Type B (PCR) NEGATIVE RSV RNA Qual (PCR) NEGATIVE SARS-CoV-2 RNA (RT-PCR) NEGATIVE 05/13/22 05/13/22 15:38 17:31 MCV MCH MCHC RDW Plt Count MPV Immature Gran % (Auto) Neut % (Auto) Lymph % (Auto) [place] % (Auto) Eos % (Auto) Baso % (Auto) Lymph # (Auto) [place] # (Auto) Eos # (Auto) Baso # (Auto) Abs Immat Gran (auto) Absolute Neuts (auto) Absolute Nucleated RBC Nucleated RBC % (auto) PT INR Anion Gap Estim Creat Clear Calc Estimated GFR Random Glucose Calcium Magnesium Total Bilirubin AST ALT Alkaline Phosphatase Troponin I High Sens 9.2 B-Natriuretic Peptide Total Protein Albumin Urine Color Yellow Urine Appearance Clear Urine pH 5.5 Ur Specific [place] <= 1.005 Urine Protein Negative Urine Glucose (UA) Negative Urine Ketones Negative Urine Blood Negative Urine Nitrite Negative Ur Leukocyte Esterase Trace H Urine RBC 3-5 H Urine WBC 0-5 Ur Squamous Epith Cells 0-2 Urine Bacteria 2+ Hyaline Casts 0-2 Influenza Type A (PCR) Influenza Type B (PCR) RSV RNA Qual (PCR) SARS-CoV-2 RNA (RT-PCR) <JUANITA Domínguez - Last Filed: 05/13/22 20:28> Imaging Radiologist's Impressions: Impressions Chest X-Ray 05/13/22 12:09 IMPRESSION: Clear lungs. <JUANITA Domínguez - Last Filed: 05/13/22 20:28> Assessment and Plan (1) CHF exacerbation: Status: Acute <JUANITA Domínguez - Last Filed: 05/13/22 20:28> Pt is an 86-year-old female with a PMH significant for?asthma, allergies, HTN, HLD, hypothyroidism, and CHF who presents to the ED with increasing SOB and cough. Pt will be admitted to the hospital for treatment of further evaluation of CHF exacerbation. Acute CHF exacerbation Elevated BNP, 1+ pitting edema of lower legs bilaterally, increasing shortness of breath, CXR with possible pulmonary edema Patient has been noncompliant with home furosemide, stopping her medication 1 week ago Furosemide 40 mg IV b.i.d. Follow up lytes, Mag, I/0 Echocardiogram Cardiology consult Lower right abdominal pain Unclear etiology Area very tender to deep palpitation Patient notes bowel habits have changed from chronic constipation to [address] of loose [address] CT of abdomen and pelvis Leukocytosis Unclear etiology/source Sent out blood and urine cultures Test for C diff Get rectal temperature Hold off on antibiotics for now, pending CT of abdomen and pelvis Monitor labs Asthma Patient does not seem to be in acute exacerbation, no wheezing on exam exa mination Continue home inhalers Hypothyroidism Continue levothyroxine HLD Continue statin HTN Continue amlodipine Full Code Attending:? DVT Prophylaxis: Lovenox Pt will require a hospitalization of at least two nights for treatment of?CHF exacerbation with IV diuretics. <JUANITA Domínguez - Last Filed: 05/13/22 20:28> Pt is an 86-year-old female with a PMH significant for?asthma, allergies, HTN, HLD, hypothyroidism, and CHF who presents to the ED with increasing SOB and cough. Pt will be admitted to the hospital for treatment of further evaluation of CHF exacerbation. Acute CHF exacerbation Elevated BNP, 1+ pitting edema of lower legs bilaterally, increasing shortness of breath, CXR with possible pulmonary edema Patient has been noncompliant with home furosemide, stopping her medication 1 w [place] ago Furosemide 40 mg IV b.i.d., daily, and low sodium diet Follow up lytes, Mag, I/0 Echocardiogram Cardiology consult Lower right abdominal pain Unclear etiology Area very tender to deep palpitation Patient notes bowel habits have changed from chronic constipation to [address] of loose [address] CT of abdomen and pelvis r/o cdiff Leukocytosis Unclear etiology/source Sent out blood and urine cultures, asymptomatic bacturia Test for C diff Get rectal temperature Hold off on antibiotics for now, pending CT of abdomen and pelvis Monitor cbc Asthma Patient does not seem to be in acute exacerbation, no wheezing on exam examination Continue home inhalers Hypothyroidism Continue levothyroxine HLD Continue statin HTN Continue amlodipine Full Code Attending:? DVT Prophylaxis: Lovenox Pt will require a hospitalization of at least two nights for treatment of?CHF exacerbation with IV diuretics. <Faustina Gallardo MD - Last Filed: 05/13/22 22:39> Time Spent With Patient Time: Total time managing care of this patient today ____ minutes. <JUANITA Domínguez - Last Filed: 05/13/22 20:28> Quality Stroke Does the patient have a stroke diagnosis?: No <JUANITA Domínguez - Last Filed: 05/13/22 20:28> VTE Prior VTE?: No <JUANITA Domínguez - Last Filed: 05/13/22 20:28> VTE Risk Level:: Medical - moderate - high <JUANITA Domínguez - Last Filed: 05/13/22 20:28> VTE Device Contraindication: Treatment Not Indicated <JUANITA Domínguez - Last Filed: 05/13/22 20:28> VTE Drug Contraindication: N/A - Med Ordered <JUANITA Domínguez - Last Filed: 05/13/22 20:28>
--- NOTE | 2022-05-13 18:08 | MHC.EDTECH ---
1800 rounding and vitals sign taken ,pt was assisted unto bedside commode ,pt voided 300 ml ,had small amount of bowel movement ,care given back to bed ,warm blanket given and tv remote ,pt daughter left .
--- NOTE | 2022-05-13 18:42 | MHC.EDTECH ---
pt has an incontinent episode in the bed, linen change ,care given ,pt was assisted unto bedside commode ,voided another 300 ml in commode .
--- NOTE | 2022-05-13 19:08 | PHA.MEDREC ---
Pharmacy Consult ? Medication Reconciliation Pharmacy has completed the medication reconciliation.
--- NOTE | 2022-05-13 20:15 | MHC.EDTECH ---
pt was assisted unto bedside commode ,void 100 ml urine .
--- NOTE | 2022-05-13 20:38 | MHC.EDTECH ---
PT BLOOD CULTURE AND LACTIC ACID DRAWN AND SENT TO LAB .
[2022-05-13] MEDS: Famotidine 20 MG TABLET PO (21:24)
[2022-05-13] MEDS: Enoxaparin Sodium 40 MG/0.4 ML SYRINGE SUBCUT (21:24)
[2022-05-13] MEDS: amLODIPine Besylate 2.5 MG TABLET PO (21:24)
[2022-05-13] MEDS: Montelukast Sodium 10 MG TABLET PO (21:24)
[2022-05-13 22:19] LABS: Lactic Acid 1.5 mmol/L (0.5-2.0)
[2022-05-13] MEDS: cefTRIAXone sodium 1 GM in 0.9 % Sodium Chloride 50 ML IV (22:27)
--- NOTE | 2022-05-13 22:31 | PC.NURSE ---
Assumed care of pt. at 1900. Pt was resting in bed at that time. Pt. urinated and had a small bm. Stool was collected for diff culture. ABX now running per JUN. Pt. has a purewick now in place to prevent skin breakdown from constant urination d/t IV diuretics. Pt. resting quietly with no distress.
--- NOTE | 2022-05-13 22:39 | PM.EVENT ---
Event Note Date of Service: 05/13/22 Event Note: 86-year-old female with past medical history of CHF, hypothyroidism, who was on furosemide for up until a week ago when she stopped taking it on her own accord comes in with complaints of shortness of breath. Labs are abnormal for an elevated BNP, on review of chest x-ray although read as clear, there appears to be pulmonary congestion, patient also has lower extremity edema, there for CHF exacerbation likely. Will restart Lasix in IV form, will obtain echocardiogram in the morning. On review of her vitals as well as labs noted to have tachypnea, temperature of 99.6 degrees, rectal of 101.6, leukocytosis. At the time of admission unclear source, UA is positive for trace leukocyte Estrace although patient asymptomatic. Exam revealed tender abdomen, abdominal CT pelvis was obtained which showed no acute abnormality in the abdomen but possible infiltrates in the chest, at this time will obtain a chest CT, will start her on broad-spectrum IV antibiotics, blood cultures, urine cultures, lactic acid have been ordered. For full H&P please see below Time Spent With Patient Time: Total time managing care of this patient today ____ minutes.
[2022-05-13] MEDS: Acetaminophen 325 MG TABLET 650 MG PO (22:52)
[2022-05-13] MEDS: Azithromycin 500 MG in 0.9 % Sodium Chloride 250 ML 125 MG IV (23:01)
[2022-05-13 23:25] LABS: CDiff Gene PCR NEGATIVE (Negative)
--- NOTE | 2022-05-13 23:46 | PC.NURSE ---
Pt's a/o x4, pt has pure wick on, pt has IC access on her RAC. Pt has diminished lung sounds throughout bilaterally. Pt has pitting edema +2 bilaterally on her lower extremities.
--- NOTE | 2022-05-14 04:27 | PC.NURSE ---
Pt's on the monitor technician, pt o2 dropped to 85% and she was experiencing SOB. This nurse connected her to the NC at 2L pt's is 97%.
[2022-05-14 05:58] VITALS: BP 134/62; PULSE 102; RESP 17; TEMP 36.9; O2SAT 96
[2022-05-14 06:30] LABS: Hematocrit 31.7 % (37.0-47.0); Hemoglobin 10.3 g/dl (12.0-16.0); Mean Corpuscular HGB Conc 32.5 g/dl (31.0-35.0); Mean Corpuscular Hemoglobin 32.7 pg (27.0-33.0); Mean Corpuscular Volume 100.6 fL (80.0-98.0); Mean Platelet Volume 10.8 fL (9.4-12.3); Platelet Count 202 X10*3/uL (160-400); Red Blood Count 3.15 X10*6/uL (4.20-5.50); Red Cell Distribution Width 12.1 % (11.0-16.0)
[2022-05-14 06:52] LABS: Anion Gap 15 (12-20); Blood Urea Nitrogen 11 mg/dL (9-16); Calcium 8.5 mg/dL (8.4-10.2); Carbon Dioxide 23 mmol/L (22-29); Chloride 104 mmol/L (96-108); Creatinine Clr Calc Pharmacy 60.9; Estimated Glomerular Filt Rate > 60; Glucose Random 102 mg/dL (60-115); Magnesium 1.5 mg/dL (1.6-2.6); Potassium 3.7 mmol/L (3.3-5.1); Sodium 138 mmol/L (135-145)
[2022-05-14 06:55] LABS: B Type Natriuretic Peptide 171 pg/mL (<100)
[2022-05-14 07:55] VITALS: BP 139/72; PULSE 100; RESP 17; O2SAT 95
[2022-05-14] MEDS: Furosemide 40 MG/4 ML VIAL IVPUSH ×2 (08:47→18:53)
[2022-05-14] MEDS: guaiFENesin DM 100/10/5 ML 5 ML SYRUP PO ×3 (08:48→19:47)
[2022-05-14] MEDS: Levothyroxine Sodium 25 MCG TABLET PO (08:49)
[2022-05-14] MEDS: Omeprazole 20 MG CAPSULE.DR PO (08:49)
[2022-05-14] MEDS: Losartan Potassium 50 MG TABLET 100 MG PO (08:49)
[2022-05-14] MEDS: Pravastatin Sodium 20 MG TABLET PO (08:49)
[2022-05-14] MEDS: 0.9 % Sodium Chloride Flush 3 ML SYRINGE IVFLUSH ×2 (08:50→16:07)
--- NOTE | 2022-05-14 09:21 | MHC.EDTECH ---
changed patients gown and bedding. Andressa Hardin
--- NOTE | 2022-05-14 10:54 | P.PNIM_ITS ---
Subjective Subjective Date of Service: 05/14/22 Interval History: Seen and evaluated this morning Complaining of difficulty breathing and coughing Denies any fever, chills No reported other overnight events Review of Systems Review of Systems: Yes all other systems are reviewed and are negative Physical Exam Vital Signs: Vital Signs: Last Vital Signs Temp 98.5 F 05/14/22 05:58 Pulse 100 05/14/22 07:55 Resp 17 05/14/22 07:55 BP 139/72 05/14/22 07:55 Pulse Ox 95 05/14/22 07:55 O2 Del Method 05/14/22 07:55 O2 Flow Rate 2 05/14/22 07:55 BMI result Body Mass Index 43.0 Const: Other: Constitutional : Awake, interactive, not in distress Neck : Normal inspection, Supple Cardiovascular : RRR, elevated JVP, trace bilateral lower extremity edema Respiratory : good bilateral air entry, basal fine bilateral crackles, no whe ezes or rhonchi Gastrointestinal: soft, lax, Normal bowel sounds, Non tender Skin : Warm, Dry Neurological : Alert & oriented x3, No focal deficit. Objective Data Active Medications Acetaminophen (Acetaminophen 325 Mg Tablet) 650 mg PO Q6H PRN PRN Reason: Pain, Mild (Pain Scale 1-3) Last Admin: 05/13/22 22:52 Dose: 650 mg Documented By: ALMA DELIA Albuterol Sulfate (Albuterol Sulfate 90 Mcg 8 Gm Inhaler) 2 puff INHALE Q4H PRN PRN Reason: Shortness Of Breath Amlodipine Besylate (Amlodipine Besylate 2.5 Mg Tablet) 2.5 mg PO BEDTIME WILFRED; Protocol Last Admin: 05/13/22 21:24 Dose: 2.5 mg Documented By: ALMA DELIA Docusate Sodium (Docusate Sodium 100 Mg Capsule) 100 mg PO DAILY PRN PRN Reason: Constipation Enoxaparin Sodium (Enoxaparin Sodium 40 Mg/0.4 Ml Syringe) 40 mg SUBCUT Q24H WILFRED Last Admin: 05/13/22 21:24 Dose: 40 mg Documented By: ALMA DELIA Famotidine (Famotidine 20 Mg Tablet) 20 mg PO BEDTIME WILFRED Last Admin: 05/13/22 21:24 Dose: 20 mg Documented By: ALMA DELIA Fluticasone/Vilanterol (Fluticasone/Vilanterol 100/25 Blst.W.Dev) 1 puff INHALE RDAILY [facility] [place] Last Admin: 05/14/22 08:25 Dose: Not Given Documented By: MIGUEL Non-Admin Reason: Med Not Available Furosemide (Furosemide 40 Mg/4 Ml Vial) 40 mg IVPUSH BID@0900,1800 [facility] [place]; Protocol Last Admin: 05/14/22 08:47 Dose: 40 mg Documented By: ADOLPH Guaifenesin/Dextromethorphan (Guaifenesin Dm 100/10/5 Ml 5 Ml Syrup) 5 ml PO Q4H PRN PRN Reason: Cough Last Admin: 05/14/22 08:48 Dose: 5 ml Documented By: ADOLPH Ceftriaxone Sodium 1 gm/ (Sodium Chloride) 50 mls @ 100 mls/hr IV Q24H [facility] [place] Last Infusion: 05/13/22 23:03 Dose: 0 mls/hr Documented By: ALMA DELIA Azithromycin 500 mg/ Sodium (Chloride) 250 mls @ 125 mls/hr IV Q24H [facility] [place] Last Infusion: 05/14/22 01:30 Dose: 0 mls/hr Documented By: ROBBIE Levothyroxine Sodium (Levothyroxine Sodium 25 Mcg Tablet) 25 mcg PO DAILY [facility] [place] Last Admin: 05/14/22 08:49 Dose: 25 mcg Documented By: ADOLPH Losartan Potassium (Losartan Potassium 50 Mg Tablet) 100 mg PO DAILY [facility] [place]; Protocol Last Admin: 05/14/22 08:49 Dose: 100 mg Documented By: ADOLPH Montelukast Sodium (Montelukast Sodium 10 Mg Tablet) 10 mg PO BEDTIME [facility] [place] Last Admin: 05/13/22 21:24 Dose: 10 mg Documented By: ALMA DELIA Omeprazole (Omeprazole 20 Mg Capsule.) 20 mg PO DAILY [facility] [place] Last Admin: 05/14/22 08:49 Dose: 20 mg Documented By: ADOLPH Ondansetron HCl (Ondansetron Hcl 4 Mg/2 Ml Vial) 4 mg IVPUSH Q8H PRN PRN Reason: Nausea and Vomiting Pharmacy Consult (Consult Rx Perform Med Rec) 1 each MISCELLANE ONCE PRN PRN Reason: Consult order Pravastatin Sodium (Pravastatin Sodium 20 Mg Tablet) 20 mg PO DAILY [facility] [place] Last Admin: 05/14/22 08:49 Dose: 20 mg Documented By: ADOLPH Sodium Chloride (0.9 % Sodium Chloride Flush 3 Ml Syringe) 3 ml IVFLUSH QSHIFT [facility] [place] Last Admin: 05/14/22 08:50 Dose: 3 ml Documented By: ADOLPH Labs 05/14/22 06:13 05/14/22 06:13 Labs: Laboratory Results - last 24 hr 05/13/22 05/13/22 05/13/22 11:47 11:47 11:47 MCV 100.3 H MCH 32.6 MCHC 32.5 RDW 12.1 Plt Count 217 MPV 10.9 Immature Gran % (Auto) 0.4 Neut % (Auto) 78.3 H Lymph % (Auto) 12.3 L Ponce % (Auto) 8.4 Eos % (Auto) 0.1 Baso % (Auto) 0.5 Lymph # (Auto) 1.9 Ponce # (Auto) 1.3 H Eos # (Auto) 0.0 Baso # (Auto) 0.1 Abs Immat Gran (auto) 0.06 H Absolute Neuts (auto) 11.9 H Absolute Nucleated RBC 0.000 Nucleated RBC % (auto) 0.0 PT 13.1 INR 1.1 Anion Gap 14 Estim Creat Clear Calc 58.4 Estimated GFR > 60 Random Glucose 124 H Lactic Acid Calcium 9.2 Magnesium 1.6 Total Bilirubin 1.2 H AST 19 ALT 11 Alkaline Phosphatase 78 Troponin I High Sens B-Natriuretic Peptide Total Protein 6.9 Albumin 3.7 Urine Color Urine Appearance Urine pH Ur Specific [place] Urine Protein Urine Glucose (UA) Urine Ketones Urine Blood Urine Nitrite Ur Leukocyte Esterase Urine RBC Urine WBC Ur Squamous Epith Cells Urine Bacteria Hyaline Casts C. difficile Tox B Gene Influenza Type A (PCR) Influenza Type B (PCR) RSV RNA Qual (PCR) SARS-CoV-2 RNA (RT-PCR) 05/13/22 05/13/22 05/13/22 11:47 11:47 11:47 MCV MCH MCHC RDW Plt Count MPV Immature Gran % (Auto) Neut % (Auto) Lymph % (Auto) Ponce % (Auto) Eos % (Auto) Baso % (Auto) Lymph # (Auto) Ponce # (Auto) Eos # (Auto) Baso # (Auto) Abs Immat Gran (auto) Absolute Neuts (auto) Absolute Nucleated RBC Nucleated RBC % (auto) PT INR Anion Gap Estim Creat Clear Calc Estimated GFR Random Glucose Lactic Acid Calcium Magnesium Total Bilirubin AST ALT Alkaline Phosphatase Troponin I High Sens 8.9 B-Natriuretic Peptide 288 H Total Protein Albumin Urine Color Urine Appearance Urine pH Ur Specific [place] Urine Protein Urine Glucose (UA) Urine Ketones Urine Blood Urine Nitrite Ur Leukocyte Esterase Urine RBC Urine WBC Ur Squamous Epith Cells Urine Bacteria Hyaline Casts C. difficile Tox B Gene Influenza Type A (PCR) NEGATIVE Influenza Type B (PCR) NEGATIVE RSV RNA Qual (PCR) NEGATIVE SARS-CoV-2 RNA (RT-PCR) NEGATIVE 05/13/22 05/13/22 05/13/22 15:38 17:31 20:33 MCV MCH MCHC RDW Plt Count MPV Immature Gran % (Auto) Neut % (Auto) Lymph % (Auto) Ponce % (Auto) Eos % (Auto) Baso % (Auto) Lymph # (Auto) Ponce # (Auto) Eos # (Auto) Baso # (Auto) Abs Immat Gran (auto) Absolute Neuts (auto) Absolute Nucleated RBC Nucleated RBC % (auto) PT INR Anion Gap Estim Creat Clear Calc Estimated GFR Random Glucose Lactic Acid 2.0 Calcium Magnesium Total Bilirubin AST ALT Alkaline Phosphatase Troponin I High Sens 9.2 B-Natriuretic Peptide Total Protein Albumin Urine Color Yellow Urine Appearance Clear Urine pH 5.5 Ur Specific [place] <= 1.005 Urine Protein Negative Urine Glucose (UA) Negative Urine Ketones Negative Urine Blood Negative Urine Nitrite Negative Ur Leukocyte Esterase Trace H Urine RBC 3-5 H Urine WBC 0-5 Ur Squamous Epith Cells 0-2 Urine Bacteria 2+ Hyaline Casts 0-2 C. difficile Tox B Gene Influenza Type A (PCR) Influenza Type B (PCR) RSV RNA Qual (PCR) SARS-CoV-2 RNA (RT-PCR) 05/13/22 05/13/22 05/14/22 21:59 22:23 06:13 MCV 100.6 H MCH 32.7 MCHC 32.5 RDW 12.1 Plt Count 202 MPV 10.8 Immature Gran % (Auto) Neut % (Auto) Lymph % (Auto) Ponce % (Auto) Eos % (Auto) Baso % (Auto) Lymph # (Auto) Ponce # (Auto) Eos # (Auto) Baso # (Auto) Abs Immat Gran (auto) Absolute Neuts (auto) Absolute Nucleated RBC 0.000 Nucleated RBC % (auto) 0.0 PT INR Anion Gap Estim Creat Clear Calc Estimated GFR Random Glucose Lactic Acid 1.5 Calcium Magnesium Total Bilirubin AST ALT Alkaline Phosphatase Troponin I High Sens B-Natriuretic Peptide Total Protein Albumin Urine Color Urine Appearance Urine pH Ur Specific [place] Urine Protein Urine Glucose (UA) Urine Ketones Urine Blood Urine Nitrite Ur Leukocyte Esterase Urine RBC Urine WBC Ur Squamous Epith Cells Urine Bacteria Hyaline Casts C. difficile Tox B Gene NEGATIVE Influenza Type A (PCR) Influenza Type B (PCR) RSV RNA Qual (PCR) SARS-CoV-2 RNA (RT-PCR) 05/14/22 05/14/22 06:13 06:13 MCV MCH MCHC RDW Plt Count MPV Immature Gran % (Auto) Neut % (Auto) Lymph % (Auto) Ponce % (Auto) Eos % (Auto) Baso % (Auto) Lymph # (Auto) Ponce # (Auto) Eos # (Auto) Baso # (Auto) Abs Immat Gran (auto) Absolute Neuts (auto) Absolute Nucleated RBC Nucleated RBC % (auto) PT INR Anion Gap 15 Estim Creat Clear Calc 60.9 Estimated GFR > 60 Random Glucose 102 Lactic Acid Calcium 8.5 D Magnesium 1.5 L Total Bilirubin AST ALT Alkaline Phosphatase Troponin I High Sens B-Natriuretic Peptide 171 H Total Protein Albumin Urine Color Urine Appearance Urine pH Ur Specific [place] Urine Protein Urine Glucose (UA) Urine Ketones Urine Blood Urine Nitrite Ur Leukocyte Esterase Urine RBC Urine WBC Ur Squamous Epith Cells Urine Bacteria Hyaline Casts C. difficile Tox B Gene Influenza Type A (PCR) Influenza Type B (PCR) RSV RNA Qual (PCR) SARS-CoV-2 RNA (RT-PCR) Assessment and Plan (1) CHF exacerbation: Status: Acute (2) Community acquired pneumonia: Status: Acute Plan Pt is an 86-year-old female with a PMH significant for?asthma, allergies, HTN, HLD, hypothyroidism, and CHF who presents to the ED with increasing SOB and cough. Pt will be admitted to the hospital for treatment of further evaluation of CHF exacerbation. Acute CHF exacerbation Secondary to noncompliance Continue Furosemide 40 mg IV b.i.d., daily Start spironolactone daily low sodium diet Follow up lytes, Mag, I/0 Pending Echocardiogram Cardiology consult Lower right abdominal pain No more tenderness appreciated on exam CT of abdomen and pelvis not showing any acute findings r/o cdiff Community-acquired pneumonia CT scan showed right lower lobe infiltrate Start azithromycin and ceftriaxone Pending blood culture Monitor cbc Asthma Patient does not seem to be in acute exacerbation, no wheezing on exam examination Continue home inhalers Hypothyroidism Continue levothyroxine HLD Continue statin HTN Continue amlodipine Full Code DVT Prophylaxis: Lovenox Pt will require a hospitalization overnight for treatment of?CHF exacerbation with IV diuretics and antibiotics for pneumonia Time Spent With Patient Time: Total time managing care of this patient today ____ minutes. Quality Stroke Does the patient have a stroke diagnosis?: No VTE Prior VTE?: No VTE Risk Level:: Medical - moderate - high VTE Device Contraindication: Treatment Not Indicated VTE Drug Contraindication: N/A - Med Ordered
[2022-05-14] MEDS: Spironolactone 25 MG TABLET 12.5 MG PO (11:16)
--- NOTE | 2022-05-14 11:49 | PM.CNCAR ---
History of Present Illness History of Present Illness Date of Service: 05/14/22 Requesting physician: Marcus Juarez Consult reason: congestive heart failure Chief complaint: SOB Narrative: I was consulted to see Sudha in cardiology consultation today for progressive shortness of breath. Patient 86-year-old female who lives independently by herself with prior history of what appears to be diastolic heart failure manage many years ago and was on diuretic regimen and subsequently has had no hospitalization related to it. Symptoms at that time included weight gain and shortness of breath. She has prior history of hypertension as well as hyperlipidemia. No known history of coronary artery disease or myocardial infarction. She says she she also has history of asthma for which she uses inhalers. About few weeks ago her daughter and son-in-law came down with RSV infection. She did not have any complaints at that point time but then progressively started getting more more short of breath. Also at the same time she had stopped taking her diuretics as she was going to play bingo twice a day and felt like this was interfering with her activities. She started noticing increasing leg swelling, coughing, chest discomfort and tightness with coughing, worsening shortness of breath. No obvious orthopnea or PND reported. She denies any prolonged palpitation irregular heartbeat. She came to the hospital was noted to have elevated BNP in the 200 range. She was given Lasix has diuresed continues to have leg edema which is improved. Her BNP is reduced. Blood pressures remained stable. Kidney functions are stable magnesium is on the low side. Review of Systems Constitutional: Constitutional: Denies body ache(s), Reports chills, Denies fever(s) and Reports weakness Eyes: Eyes: Reports no additional eye complaints Cardiovascular: Cardiovascular: Reports no additional cardiovascular complaints and Reports dyspnea on exertion Respiratory: Respiratory: Reports cough, Reports pain with cough and Reports dyspnea on exertion Gastrointestinal: Gastrointestinal: Reports no additional gastrointestinal complaints Genitourinary: Genitourinary: Reports no additional female genitourinary complaints Neurologic: Reports system reviewed and no additional complaints, except as documented and Reports weakness Psychiatric: Psychiatric: Reports no additional psychiatric complaints Endocrine: Endocrine: Reports no additional endocrine complaints Allergic/Immunologic: Allergic/Immunologic: Reports no additional allergic/immunologic complaints [facility] Past Medical History Medical History HTN (hypertension) Surgical History Surgical History History of appendectomy History of cholecystectomy History of hysterectomy Social History Social History Alcohol intake: never Smoked in Last 30 Days: No Advance Directives: Yes Advance Directives on File: Yes Advance Directives Date on File: 05/13/22 Meds Allergies Allergy/AdvReac Type Severity Reaction Status Date / Time aspirin [ASPIRIN] Allergy Intermediate BURNING Verified 05/13/22 22:58 STOMACH lisinopril [LISINOPRIL] Allergy Unknown COUGH Verified 05/13/22 22:58 penicillin V Allergy Unknown Unknown Verified 05/13/22 22:58 Penicillins [PCN] Allergy Unknown UNK Verified 05/13/22 22:58 sulfamethoxazole Allergy Unknown UNKNOWN Verified 05/13/22 22:58 [From BACTRIM] trimethoprim [From BACTRIM] Allergy Unknown UNKNOWN Verified 05/13/22 22:58 Active Medications: Current Medications Acetaminophen (Acetaminophen 325 Mg Tablet) 650 mg PO Q6H PRN PRN Reason: Pain, Mild (Pain Scale 1-3) Last Admin: 05/13/22 22:52 Dose: 650 mg Albuterol Sulfate (Albuterol Sulfate 90 Mcg 8 Gm Inhaler) 2 puff INHALE Q4H PRN PRN Reason: Shortness Of Breath Amlodipine Besylate (Amlodipine Besylate 2.5 Mg Tablet) 2.5 mg PO BEDTIME [facility]; Protocol Last Admin: 05/13/22 21:24 Dose: 2.5 mg Docusate Sodium (Docusate Sodium 100 Mg Capsule) 100 mg PO DAILY PRN PRN Reason: Constipation Enoxaparin Sodium (Enoxaparin Sodium 40 Mg/0.4 Ml Syringe) 40 mg SUBCUT Q24H [facility] Last Admin: 05/13/22 21:24 Dose: 40 mg Famotidine (Famotidine 20 Mg Tablet) 20 mg PO BEDTIME [facility] Last Admin: 05/13/22 21:24 Dose: 20 mg Fluticasone/Vilanterol (Fluticasone/Vilanterol 100/25 Blst.W.Dev) 1 puff INHALE RDAILY [facility] Last Admin: 05/14/22 08:25 Dose: Not Given Furosemide (Furosemide 40 Mg/4 Ml Vial) 40 mg IVPUSH BID@0900,1800 [facility]; Protocol Last Admin: 05/14/22 08:47 Dose: 40 mg Guaifenesin/Dextromethorphan (Guaifenesin Dm 100/10/5 Ml 5 Ml Syrup) 5 ml PO Q4H PRN PRN Reason: Cough Last Admin: 05/14/22 08:48 Dose: 5 ml Ceftriaxone Sodium 1 gm/ (Sodium Chloride) 50 mls @ 100 mls/hr IV Q24H [facility] Last Infusion: 05/13/22 23:03 Dose: Infused Azithromycin 500 mg/ Sodium (Chloride) 250 mls @ 125 mls/hr IV Q24H [facility] Last Infusion: 05/14/22 01:30 Dose: Infused Levothyroxine Sodium (Levothyroxine Sodium 25 Mcg Tablet) 25 mcg PO DAILY [facility] Last Admin: 05/14/22 08:49 Dose: 25 mcg Losartan Potassium (Losartan Potassium 50 Mg Tablet) 100 mg PO DAILY [facility]; Protocol Last Admin: 05/14/22 08:49 Dose: 100 mg Montelukast Sodium (Montelukast Sodium 10 Mg Tablet) 10 mg PO BEDTIME [facility] Last Admin: 05/13/22 21:24 Dose: 10 mg Omeprazole (Omeprazole 20 Mg Capsule.Dr) 20 mg PO DAILY [facility] Last Admin: 05/14/22 08:49 Dose: 20 mg Ondansetron HCl (Ondansetron Hcl 4 Mg/2 Ml Vial) 4 mg IVPUSH Q8H PRN PRN Reason: Nausea and Vomiting Pharmacy Consult (Consult Rx Perform Med Rec) 1 each MISCELLANE ONCE PRN PRN Reason: Consult order Pravastatin Sodium (Pravastatin Sodium 20 Mg Tablet) 20 mg PO DAILY [facility] Last Admin: 05/14/22 08:49 Dose: 20 mg Sodium Chloride (0.9 % Sodium Chloride Flush 3 Ml Syringe) 3 ml IVFLUSH QSHIFT [facility] Last Admin: 05/14/22 08:50 Dose: 3 ml Spironolactone (Spironolactone 25 Mg Tablet) 12.5 mg PO DAILY [facility]; Protocol Last Admin: 05/14/22 11:16 Dose: 12.5 mg Home Medications Medication Instructions Recorded Confirmed Last Taken Type albuterol sulfate 90 mcg/actuation 2 puff inhalation Q4H PRN 05/13/22 05/13/22 Unknown History aerosol inhaler Shortness Of Breath amlodipine 2.5 mg tablet 1 tab PO BEDTIME 05/13/22 05/13/22 05/12/22 History famotidine 20 mg tablet 1 tab PO BEDTIME 05/13/22 05/13/22 05/12/22 History fluticasone 250 mcg-salmeterol 50 1 puff inhalation BID 05/13/22 05/13/22 Unknown History mcg/dose blistr powdr for inhalation (Advair Diskus) furosemide 20 mg tablet 1 tab PO DAILY 05/13/22 05/13/22 05/13/22 History levothyroxine 25 mcg tablet 1 tab PO DAILY 05/13/22 05/13/22 05/13/22 History losartan 100 mg tablet 1 tab PO DAILY 05/13/22 05/13/22 05/13/22 History montelukast 10 mg tablet 1 tab PO BEDTIME 05/13/22 05/13/22 05/12/22 History pantoprazole 40 mg tablet,delayed 1 tab PO DAILY 05/13/22 05/13/22 05/13/22 History release pravastatin 20 mg tablet 1 tab PO DAILY 05/13/22 05/13/22 05/13/22 History Physical Exam Vital Signs: Vital Signs: Last Vital Signs Temp 98.5 F 05/14/22 05:58 Pulse 100 05/14/22 07:55 Resp 17 05/14/22 07:55 BP 139/72 05/14/22 07:55 Pulse Ox 95 05/14/22 07:55 O2 Del Method 05/14/22 07:55 O2 Flow Rate 2 05/14/22 07:55 BMI result Body Mass Index 43.0 Const: General: cooperative, comfortable and in distress mild and respiratory Nutritional Appearance: obese Orientation/consciousness: patient oriented x3 HEENT: Head: Yes normocephalic and Yes atraumatic Neck: Neck: Yes trachea midline, Yes supple and Yes no JVD Resp: Effort & Inspection: normal respiratory effort Auscultation: crackles bilateral at the base, no wheezes and diminished lung sounds Cardio: Jugular venous distension: no JVD Palpation: normal PMI Rate: regular rate Rhythm: regular rhythm Heart sounds: S1 normal heart sound present, S2 normal heart sound present, no click, no gallops and no murmurs GI: Auscultation: normal bowel sounds Skin: General skin exam: no rashes or lesions noted Neuro: General: patient oriented x3 and no focal motor deficits Extrem: General: No clubbing, No cyanosis and Yes edema Objective Labs and Meds 05/14/22 06:13 05/14/22 06:13 Lab results: Laboratory Results - last 24 hr 05/13/22 05/13/22 05/13/22 11:47 11:47 11:47 WBC 15.2 H RBC 3.37 L Hgb 11.0 L Hct 33.8 L MCV 100.3 H MCH 32.6 MCHC 32.5 RDW 12.1 Plt Count 217 MPV 10.9 Immature Gran % (Auto) 0.4 Neut % (Auto) 78.3 H Lymph % (Auto) 12.3 L Maries % (Auto) 8.4 Eos % (Auto) 0.1 Baso % (Auto) 0.5 Lymph # (Auto) 1.9 Maries # (Auto) 1.3 H Eos # (Auto) 0.0 Baso # (Auto) 0.1 Abs Immat Gran (auto) 0.06 H Absolute Neuts (auto) 11.9 H Absolute Nucleated RBC 0.000 Nucleated RBC % (auto) 0.0 PT 13.1 INR 1.1 Sodium 140 Potassium 4.3 Chloride 106 Carbon Dioxide 24 Anion Gap 14 BUN 11 Creatinine 0.72 Estim Creat Clear Calc 58.4 Estimated GFR > 60 Random Glucose 124 H Lactic Acid Calcium 9.2 Magnesium 1.6 Total Bilirubin 1.2 H AST 19 ALT 11 Alkaline Phosphatase 78 Troponin I High Sens B-Natriuretic Peptide Total Protein 6.9 Albumin 3.7 Urine Color Urine Appearance Urine pH Ur Specific [place] Urine Protein Urine Glucose (UA) Urine Ketones Urine Blood Urine Nitrite Ur Leukocyte Esterase Urine RBC Urine WBC Ur Squamous Epith Cells Urine Bacteria Hyaline Casts C. difficile Tox B Gene Influenza Type A (PCR) Influenza Type B (PCR) RSV RNA Qual (PCR) SARS-CoV-2 RNA (RT-PCR) 05/13/22 05/13/22 05/13/22 11:47 11:47 11:47 WBC RBC Hgb Hct MCV MCH MCHC RDW Plt Count MPV Immature Gran % (Auto) Neut % (Auto) Lymph % (Auto) Maries % (Auto) Eos % (Auto) Baso % (Auto) Lymph # (Auto) Maries # (Auto) Eos # (Auto) Baso # (Auto) Abs Immat Gran (auto) Absolute Neuts (auto) Absolute Nucleated RBC Nucleated RBC % (auto) PT INR Sodium Potassium Chloride Carbon Dioxide Anion Gap BUN Creatinine Estim Creat Clear Calc Estimated GFR Random Glucose Lactic Acid Calcium Magnesium Total Bilirubin AST ALT Alkaline Phosphatase Troponin I High Sens 8.9 B-Natriuretic Peptide 288 H Total Protein Albumin Urine Color Urine Appearance Urine pH Ur Specific [place] Urine Protein Urine Glucose (UA) Urine Ketones Urine Blood Urine Nitrite Ur Leukocyte Esterase Urine RBC Urine WBC Ur Squamous Epith Cells Urine Bacteria Hyaline Casts C. difficile Tox B Gene Influenza Type A (PCR) NEGATIVE Influenza Type B (PCR) NEGATIVE RSV RNA Qual (PCR) NEGATIVE SARS-CoV-2 RNA (RT-PCR) NEGATIVE 05/13/22 05/13/22 05/13/22 15:38 17:31 20:33 WBC RBC Hgb Hct MCV MCH MCHC RDW Plt Count MPV Immature Gran % (Auto) Neut % (Auto) Lymph % (Auto) Maries % (Auto) Eos % (Auto) Baso % (Auto) Lymph # (Auto) Maries # (Auto) Eos # (Auto) Baso # (Auto) Abs Immat Gran (auto) Absolute Neuts (auto) Absolute Nucleated RBC Nucleated RBC % (auto) PT INR Sodium Potassium Chloride Carbon Dioxide Anion Gap BUN Creatinine Estim Creat Clear Calc Estimated GFR Random Glucose Lactic Acid 2.0 Calcium Magnesium Total Bilirubin AST ALT Alkaline Phosphatase Troponin I High Sens 9.2 B-Natriuretic Peptide Total Protein Albumin Urine Color Yellow Urine Appearance Clear Urine pH 5.5 Ur Specific [place] <= 1.005 Urine Protein Negative Urine Glucose (UA) Negative Urine Ketones Negative Urine Blood Negative Urine Nitrite Negative Ur Leukocyte Esterase Trace H Urine RBC 3-5 H Urine WBC 0-5 Ur Squamous Epith Cells 0-2 Urine Bacteria 2+ Hyaline Casts 0-2 C. difficile Tox B Gene Influenza Type A (PCR) Influenza Type B (PCR) RSV RNA Qual (PCR) SARS-CoV-2 RNA (RT-PCR) 05/13/22 05/13/22 05/14/22 21:59 22:23 06:13 WBC 13.0 H RBC 3.15 L Hgb 10.3 L Hct 31.7 L MCV 100.6 H MCH 32.7 MCHC 32.5 RDW 12.1 Plt Count 202 MPV 10.8 Immature Gran % (Auto) Neut % (Auto) Lymph % (Auto) Maries % (Auto) Eos % (Auto) Baso % (Auto) Lymph # (Auto) Maries # (Auto) Eos # (Auto) Baso # (Auto) Abs Immat Gran (auto) Absolute Neuts (auto) Absolute Nucleated RBC 0.000 Nucleated RBC % (auto) 0.0 PT INR Sodium Potassium Chloride Carbon Dioxide Anion Gap BUN Creatinine Estim Creat Clear Calc Estimated GFR Random Glucose Lactic Acid 1.5 Calcium Magnesium Total Bilirubin AST ALT Alkaline Phosphatase Troponin I High Sens B-Natriuretic Peptide Total Protein Albumin Urine Color Urine Appearance Urine pH Ur Specific [place] Urine Protein Urine Glucose (UA) Urine Ketones Urine Blood Urine Nitrite Ur Leukocyte Esterase Urine RBC Urine WBC Ur Squamous Epith Cells Urine Bacteria Hyaline Casts C. difficile Tox B Gene NEGATIVE Influenza Type A (PCR) Influenza Type B (PCR) RSV RNA Qual (PCR) SARS-CoV-2 RNA (RT-PCR) 05/14/22 05/14/22 06:13 06:13 WBC RBC Hgb Hct MCV MCH MCHC RDW Plt Count MPV Immature Gran % (Auto) Neut % (Auto) Lymph % (Auto) Maries % (Auto) Eos % (Auto) Baso % (Auto) Lymph # (Auto) Maries # (Auto) Eos # (Auto) Baso # (Auto) Abs Immat Gran (auto) Absolute Neuts (auto) Absolute Nucleated RBC Nucleated RBC % (auto) PT INR Sodium 138 Potassium 3.7 Chloride 104 Carbon Dioxide 23 Anion Gap 15 BUN 11 Creatinine 0.69 Estim Creat Clear Calc 60.9 Estimated GFR > 60 Random Glucose 102 Lactic Acid Calcium 8.5 D Magnesium 1.5 L Total Bilirubin AST ALT Alkaline Phosphatase Troponin I High Sens B-Natriuretic Peptide 171 H Total Protein Albumin Urine Color Urine Appearance Urine pH Ur Specific [place] Urine Protein Urine Glucose (UA) Urine Ketones Urine Blood Urine Nitrite Ur Leukocyte Esterase Urine RBC Urine WBC Ur Squamous Epith Cells Urine Bacteria Hyaline Casts C. difficile Tox B Gene Influenza Type A (PCR) Influenza Type B (PCR) RSV RNA Qual (PCR) SARS-CoV-2 RNA (RT-PCR) EKG shows sinus tachycardia with nonspecific ST changes Imaging Radiologist's impression: Impressions Chest X-Ray 05/13/22 12:09 IMPRESSION: Clear lungs. Abdomen/Pelvis CT 05/13/22 20:56 IMPRESSION: 1. Extensive colonic diverticulosis. No evidence of acute diverticulitis or other acute intra-abdominal process. 2. Patchy airspace consolidation and adjacent ill-defined nodular opacities in the right lower lobe and smaller cluster of ill-defined nodular opacities in the left lung base, likely infectious/inflammatory. Correlate clinically with signs or symptoms of pneumonia. 3. Status post cholecystectomy. Extra hepatic bile duct dilation, as described. Correlate with LFTs for clinical significance. 4. Additional chronic findings, as described. Chest CT 05/13/22 23:33 IMPRESSION: 1. Patchy consolidative opacity in the lateral inferior right lung base and numerous additional patchy/nodular groundglass and/or small consolidative opacities scattered throughout the bilateral upper and lower lobes, suspicious for multifocal infection/pneumonia. No cavitary lesions to suggest more specific evidence of septic emboli. 2. No pleural effusion. 3. Status post cholecystectomy with dilated extra hepatic bile ducts. Correlate with LFTs for clinical significance. Assessment and Plan (1) CHF exacerbation: Status: Acute Patient admitted with CHF exacerbation most likely precipitated by her acute pulmonary issue as well as her not taking her diuretic regimen. Clinically appears to be mildly fluid overloaded. Would do more gentle diuresis and switch her to only Lasix 40 mg IV push x1. Continue monitor strict intake and output chart. Her BNP is responded nicely. Would add Aldactone 12.5 mg to her regimen. Continue aggressive blood pressure control which is currently well optimized. Continue supportive care for acute pulmonary issues along with bronchodilators and oxygen therapy. Out of bed to chair incentive spirometer needs to be pre use. Echocardiogram will eventually need to be performed to evaluate LV systolic and diastolic function. Will continue to follow with you Time Spent With Patient Time: Total time managing care of this patient today ____ minutes. Procedures Date of Service Date of Service: 05/14/22
[2022-05-14] MEDS: Acetaminophen 325 MG TABLET 650 MG PO (19:47)
[2022-05-14 19:54] VITALS: BP 127/61; PULSE 96; RESP 19; TEMP 37.1; O2SAT 96
[2022-05-14] MEDS: Famotidine 20 MG TABLET PO (20:27)
[2022-05-14] MEDS: Enoxaparin Sodium 40 MG/0.4 ML SYRINGE SUBCUT (20:27)
[2022-05-14] MEDS: Montelukast Sodium 10 MG TABLET PO (20:27)
[2022-05-14] MEDS: amLODIPine Besylate 2.5 MG TABLET PO (20:27)
[2022-05-14] MEDS: cefTRIAXone sodium 1 GM in 0.9 % Sodium Chloride 50 ML IV (21:22)
[2022-05-14] MEDS: Azithromycin 500 MG in 0.9 % Sodium Chloride 250 ML 125 MG IV (21:57)
[2022-05-14 23:18] VITALS: BP 133/63; PULSE 94; RESP 18; TEMP 37; O2SAT 95
[2022-05-15] VITALS (7 sets, daily range): BP systolic 112–149; BP diastolic 58–76; PULSE 91–100; RESP 12–22; TEMP 36.2–37.6; O2SAT 94–97
[2022-05-15] MEDS: guaiFENesin DM 100/10/5 ML 5 ML SYRUP PO ×4 (00:29→21:41)
[2022-05-15 06:22] LABS: Hematocrit 31.4 % (37.0-47.0); Hemoglobin 10.2 g/dl (12.0-16.0); Mean Corpuscular HGB Conc 32.5 g/dl (31.0-35.0); Mean Corpuscular Hemoglobin 32.5 pg (27.0-33.0); Mean Platelet Volume 11.2 fL (9.4-12.3); Platelet Count 219 X10*3/uL (160-400); Red Blood Count 3.14 X10*6/uL (4.20-5.50); Red Cell Distribution Width 11.9 % (11.0-16.0); White Blood Count 10.4 X10*3/uL (4.8-10.8)
[2022-05-15 07:00] LABS: B Type Natriuretic Peptide 74 pg/mL (<100)
[2022-05-15 07:26] LABS: Anion Gap 15 (12-20); Blood Urea Nitrogen 16 mg/dL (9-16); Calcium 8.5 mg/dL (8.4-10.2); Carbon Dioxide 27 mmol/L (22-29); Chloride 101 mmol/L (96-108); Estimated Glomerular Filt Rate > 60; Glucose Random 109 mg/dL (60-115); Potassium 3.5 mmol/L (3.3-5.1); Sodium 139 mmol/L (135-145)
[2022-05-15] MEDS: Levothyroxine Sodium 25 MCG TABLET PO (09:48)
[2022-05-15] MEDS: Furosemide 40 MG/4 ML VIAL IVPUSH (09:48)
[2022-05-15] MEDS: Spironolactone 25 MG TABLET 12.5 MG PO (09:48)
[2022-05-15] MEDS: Losartan Potassium 50 MG TABLET 100 MG PO (09:48)
[2022-05-15] MEDS: 0.9 % Sodium Chloride Flush 3 ML SYRINGE IVFLUSH ×2 (09:48→14:16)
[2022-05-15] MEDS: Omeprazole 20 MG CAPSULE.DR PO (09:48)
[2022-05-15] MEDS: Pravastatin Sodium 20 MG TABLET PO (09:48)
--- NOTE | 2022-05-15 11:51 | HO.PM.IMPN ---
Subjective Subjective Date of Service: 05/15/22 Interval History: Seen and evaluated this morning Improvement in difficulty breathing and coughing Still requiring oxygen supplement Denies any fever, chills No reported other overnight events Review of Systems Review of Systems: Yes all other systems are reviewed and are negative Physical Exam Vital Signs: Vital Signs: Last Vital Signs Temp 97.9 F 05/15/22 11:30 Pulse 91 05/15/22 11:30 Resp 12 05/15/22 11:30 BP 136/62 05/15/22 11:30 Pulse Ox 97 05/15/22 11:30 O2 Del Method 05/15/22 11:30 O2 Flow Rate 2 05/15/22 11:30 BMI result Body Mass Index 43.0 Const: Other: Constitutional : Awake, interactive, not in distress Neck : Normal inspection, Supple Cardiovascular : RRR, elevated JVP, trace bilateral lower extremity edema Respiratory : good bilateral air entry, basal fine bilateral crackles, no wheezes or rhonchi Gastrointestinal: soft, lax, Normal bowel sounds, Non tender Skin : Warm, Dry Neurological : Alert & oriented x3, No focal deficit. Objective Data Active Medications Acetaminophen (Acetaminophen 325 Mg Tablet) 650 mg PO Q6H PRN PRN Reason: Pain, Mild (Pain Scale 1-3) Last Admin: 05/14/22 19:47 Dose: 650 mg Documented By: PATSY Albuterol Sulfate (Albuterol Sulfate 90 Mcg 8 Gm Inhaler) 2 puff INHALE Q4H PRN PRN Reason: Shortness Of Breath Amlodipine Besylate (Amlodipine Besylate 2.5 Mg Tablet) 2.5 mg PO BEDTIME [facility]; Protocol Last Admin: 05/14/22 20:27 Dose: 2.5 mg Documented By: PATSY Docusate Sodium (Docusate Sodium 100 Mg Capsule) 100 mg PO DAILY PRN PRN Reason: Constipation Enoxaparin Sodium (Enoxaparin Sodium 40 Mg/0.4 Ml Syringe) 40 mg SUBCUT Q24H [facility] Last Admin: 05/14/22 20:27 Dose: 40 mg Documented By: PATSY Famotidine (Famotidine 20 Mg Tablet) 20 mg PO BEDTIME [facility] Last Admin: 05/14/22 20:27 Dose: 20 mg Documented By: PATSY Fluticasone/Vilanterol (Fluticasone/Vilanterol 100/25 Blst.W.Dev) 1 puff INHALE RDAILY [facility] Last Admin: 05/15/22 09:54 Dose: Not Given Documented By: MAGGI Non-Admin Reason: Med Not Available Furosemide (Furosemide 40 Mg/4 Ml Vial) 40 mg IVPUSH BID@0900,1800 [facility]; Protocol Last Admin: 05/15/22 09:48 Dose: 40 mg Documented By: MAGGI Guaifenesin/Dextromethorphan (Guaifenesin Dm 100/10/5 Ml 5 Ml Syrup) 5 ml PO Q4H PRN PRN Reason: Cough Last Admin: 05/15/22 09:48 Dose: 5 ml Documented By: MAGGI Ceftriaxone Sodium 1 gm/ (Sodium Chloride) 50 mls @ 100 mls/hr IV Q24H [facility] Last Infusion: 05/14/22 21:59 Dose: 0 mls/hr Documented By: PATSY Azithromycin 500 mg/ Sodium (Chloride) 250 mls @ 125 mls/hr IV Q24H [facility] Last Infusion: 05/15/22 00:05 Dose: 0 mls/hr Documented By: SIMRAN Levothyroxine Sodium (Levothyroxine Sodium 25 Mcg Tablet) 25 mcg PO DAILY [facility] Last Admin: 05/15/22 09:48 Dose: 25 mcg Documented By: MAGGI Losartan Potassium (Losartan Potassium 50 Mg Tablet) 100 mg PO DAILY [facility]; Protocol Last Admin: 05/15/22 09:48 Dose: 100 mg Documented By: MAGGI Montelukast Sodium (Montelukast Sodium 10 Mg Tablet) 10 mg PO BEDTIME [facility] Last Admin: 05/14/22 20:27 Dose: 10 mg Documented By: PATSY Omeprazole (Omeprazole 20 Mg Capsule.Dr) 20 mg PO DAILY [facility] Last Admin: 05/15/22 09:48 Dose: 20 mg Documented By: MAGGI Ondansetron HCl (Ondansetron Hcl 4 Mg/2 Ml Vial) 4 mg IVPUSH Q8H PRN PRN Reason: Nausea and Vomiting Pharmacy Consult (Consult Rx Perform Med Rec) 1 each MISCELLANE ONCE PRN PRN Reason: Consult order Pravastatin Sodium (Pravastatin Sodium 20 Mg Tablet) 20 mg PO DAILY [facility] Last Admin: 05/15/22 09:48 Dose: 20 mg Documented By: MAGGI Sodium Chloride (0.9 % Sodium Chloride Flush 3 Ml Syringe) 3 ml IVFLUSH QSHIFT [facility] Last Admin: 05/15/22 09:48 Dose: 3 ml Documented By: MAGGI Spironolactone (Spironolactone 25 Mg Tablet) 12.5 mg PO DAILY [facility]; Protocol Last Admin: 05/15/22 09:48 Dose: 12.5 mg Documented By: MAGGI Labs 05/15/22 05:47 05/15/22 05:47 Labs: Laboratory Results - last 24 hr 05/15/22 05/15/22 05/15/22 05:47 05:47 05:47 MCV 100.0 H MCH 32.5 MCHC 32.5 RDW 11.9 Plt Count 219 MPV 11.2 Absolute Nucleated RBC 0.000 Nucleated RBC % (auto) 0.0 Anion Gap 15 Estim Creat Clear Calc 56.0 Estimated GFR > 60 Random Glucose 109 Calcium 8.5 B-Natriuretic Peptide 74 Microbiology Microbiology Results: Microbiology 05/13/22 20:33 Blood Culture - Preliminary Blood - Venous No growth after 24 hours. 05/13/22 20:33 Blood Culture - Preliminary Blood - Venous No growth after 24 hours. Assessment and Plan (1) Community acquired pneumonia: Status: Acute (2) CHF exacerbation: Status: Acute Plan Pt is an 86-year-old female with a PMH significant for?asthma, allergies, HTN, HLD, hypothyroidism, and CHF who presents to the ED with increasing SOB and cough. Pt will be admitted to the hospital for treatment of further evaluation of CHF exacerbation. Acute CHF exacerbation Secondary to noncompliance Continue Furosemide 40 mg IV b.i.d., daily Continue spironolactone daily low sodium diet Follow up lytes, Mag, I/0 Pending Echocardiogram Cardiology consult Wean down oxygen as tolerated Lower right abdominal pain No more tenderness appreciated on exam CT of abdomen and pelvis not showing any acute findings No cdiff Community-acquired pneumonia CT scan showed right lower lobe infiltrate Continue azithromycin and ceftriaxone Pending blood culture Monitor cbc Asthma Patient does not seem to be in acute exacerbation, no wheezing on exam examination Continue home inhalers Hypothyroidism Continue levothyroxine HLD Continue statin HTN Continue amlodipine Full Code DVT Prophylaxis: Lovenox Pt will require a hospitalization overnight for treatment of?CHF exacerbation with IV diuretics and antibiotics for pneumonia Time Spent With Patient Time: Total time managing care of this patient today ____ minutes. Quality Stroke Does the patient have a stroke diagnosis?: No VTE Prior VTE?: No VTE Risk Level:: Medical - moderate - high VTE Device Contraindication: Treatment Not Indicated VTE Drug Contraindication: N/A - Med Ordered
--- NOTE | 2022-05-15 12:40 | PM.PNCARD ---
Subjective Subjective Date of Service: 05/15/22 Principal diagnosis: CHF Interval history: patient says she is breathing better but still short of breath. Leg edema is improved. BNP is normalized. Has diuresed well. Review of Systems Constitutional: Reports no additional constitutional complaints Cardiovascular: Reports dyspnea Respiratory: Reports dyspnea and Reports wheezing Gastrointestinal: Reports no additional gastrointestinal complaints Musculoskeletal: Reports no additional musculoskeletal complaints Reports system reviewed and no additional complaints, except as documented Psychiatric: Reports no additional psychiatric complaints Hematologic/Lymphatic: Reports no additional hematologic/lymphatic complaints Allergic/Immunologic: Reports no additional allergic/immunologic complaints and Reports wheezing Physical Exam Vital Signs: Last Vital Signs Temp 97.9 F 05/15/22 11:30 Pulse 91 05/15/22 11:30 Resp 12 05/15/22 11:30 BP 136/62 05/15/22 11:30 Pulse Ox 97 05/15/22 11:30 O2 Del Method 05/15/22 11:30 O2 Flow Rate 2 05/15/22 11:30 BMI result Body Mass Index 43.0 Const General: cooperative, comfortable and in distress mild and respiratory Nutritional Appearance: obese Orientation/consciousness: patient oriented x3 Neck Neck: Yes trachea midline, Yes supple and Yes no JVD Resp Effort & Inspection: normal respiratory effort Auscultation: crackles ( Coarse) bilateral at the base, wheezes and diminished lung sounds Cardio Jugular venous distension: no JVD Palpation: normal PMI Rate: regular rate Rhythm: regular rhythm Heart sounds: S1 normal heart sound present, S2 normal heart sound present, no click, no gallops and no murmurs GI Auscultation: normal bowel sounds Skin General skin exam: no rashes or lesions noted Neuro General: patient oriented x3 and no focal motor deficits Extrem General: No clubbing, No cyanosis and Yes edema Objective Labs and Meds 05/15/22 05:47 05/15/22 05:47 Lab results: Laboratory Results - last 24 hr 05/15/22 05/15/22 05/15/22 05:47 05:47 05:47 WBC 10.4 RBC 3.14 L Hgb 10.2 L Hct 31.4 L MCV 100.0 H MCH 32.5 MCHC 32.5 RDW 11.9 Plt Count 219 MPV 11.2 Absolute Nucleated RBC 0.000 Nucleated RBC % (auto) 0.0 Sodium 139 Potassium 3.5 Chloride 101 Carbon Dioxide 27 Anion Gap 15 BUN 16 Creatinine 0.75 Estim Creat Clear Calc 56.0 Estimated GFR > 60 Random Glucose 109 Calcium 8.5 B-Natriuretic Peptide 74 Progress Note: A&P Assessment and plan (1) CHF exacerbation: Status: Acute Assessment and Plan: CHF exacerbation induced by lack of diuretic compliance by patient as well as acute respiratory illness. Clinically appears much improved with improved BNP. Can switch to p.o. Lasix and continue Aldactone therapy which she is tolerating. Will need echocardiogram, and if done tomorrow as inpatient can be done tomorrow otherwise can be performed as outpatient. Will follow-up as outpatient. Portions of compliance with medication was discussed. Continue pulmonary treatment as per the primary team. Will sign of the case at this point time. Thank you for allowing me to partake in her care Time Spent With Patient Time: Total time managing care of this patient today ____ minutes. Progress Note: Quality Stroke Does the patient have a stroke diagnosis?: No Procedures Date of Service Date of Service: 05/15/22
[2022-05-15] MEDS: Acetaminophen 325 MG TABLET 650 MG PO (14:13)
--- NOTE | 2022-05-15 14:57 | PC.NURSE ---
02 REMOVED AT 1457 FOR WEANING TRIAL
--- NOTE | 2022-05-15 15:55 | MHC.CM.PN ---
CM CALLED PTS DAUGHTER/HCP, VIANCA [phone], WHO PROVIDED THE FOLLOWING INFORMATION: PT LIVES IN AN [place]W APARTMENT ATTACHED TO HER HOME SHE IS INDEPENDENT WITH SELF CARE HAS A WALKER BUT SHE DOES NOT USE IT AT BASELINE PT HAS NO SERVICES HCP ON FILE PCP: [facility] IMM DELIVERED DCP: HOME NO SERVICES [facility]
[2022-05-15] MEDS: Montelukast Sodium 10 MG TABLET PO (21:35)
[2022-05-15] MEDS: Famotidine 20 MG TABLET PO (21:35)
[2022-05-15] MEDS: Enoxaparin Sodium 40 MG/0.4 ML SYRINGE SUBCUT (21:35)
[2022-05-15] MEDS: cefTRIAXone sodium 1 GM in 0.9 % Sodium Chloride 50 ML IV (21:36)
[2022-05-15] MEDS: amLODIPine Besylate 2.5 MG TABLET PO (21:40)
[2022-05-16] VITALS (7 sets, daily range): BP systolic 122–140; BP diastolic 60–68; PULSE 79–99; RESP 16–20; TEMP 36.7–37.2; O2SAT 92–95
[2022-05-16] MEDS: Azithromycin 500 MG in 0.9 % Sodium Chloride 250 ML 125 MG IV ×2 (00:05→22:23)
[2022-05-16] MEDS: 0.9 % Sodium Chloride Flush 3 ML SYRINGE IVFLUSH ×4 (00:06→20:23)
--- NOTE | 2022-05-16 07:00 | CA_ITS ---
Transthoracic Echocardiogram Patient (Last, First, Middle): Sudha Sotelo M Gender: Female Date of : 1935 Age: 86 Procedure Date: 05/16/2022 Procedure Type: Transthoracic Echocardiogram [place] [facility] [place]: 152.4 cm Weight: 99.79 kg BSA: 1.94 m2 Heart Rate: 93 bpm BP: 122 / 61 mmHg Speech And Language Specialist: MANINDER Referring MD: Kaitlin GRANT Symptoms: CHF exacerbation Study Quality: Adequate/Contrast ECG Rhythm: Sinus Conclusions: - The left ventricular systolic function is normal. The calculated ejection fraction is 65% by biplane method. - No obvious valvular pathology seen on this study. - Mild pulmonary hypertension is present. Findings Procedure Information Contrast agent, definity, is being given per protocol without apparent complications. Left Ventricle Normal left ventricular cavity size. There is normal left ventricular wall thickness. The left ventricular systolic function is normal. The calculated ejection fraction is 65% by biplane method. There is no evidence of regional wall motion abnormalities. E/E prime ratio is >15, consistent with elevated filling pressures. Evidence suggests grade I (mild) diastolic dysfunction. Right Ventricle Normal right ventricular cavity size and systolic function. Atria Both atria are normal in size. Aortic Valve There is a normal trileaflet aortic valve. There is no aortic valve stenosis. There is no aortic valve regurgitation. Mitral Valve The mitral valve appears normal. There is no mitral valve regurgitation. There is no mitral valve stenosis. Pulmonic Valve The pulmonic valve is likely normal. Tricuspid Valve Normal tricuspid valve structure. There is mild tricuspid valve regurgitation. Mild pulmonary hypertension is present. Great Vessels The asc aorta is normal in size. Venous The inferior vena cava is normal in size and collapses greater than 50% with inspiration. Pericardium/Pleural There is no evidence of pericardial effusion. Prior Study Comparison No prior study available for comparison. Recommendations, Care & Conclusions No obvious valvular pathology seen on this study. Measurements 2D Linear Measurements IVSd: 0.81 0.6-0.9/0.6-1.0 cm LVIDd: 4.17 3.9-5.3/4.2-5.9 cm LVIDd Index: 2.15 2.4-3.2/2.2-3.1 cm/m2 LVIDs: 3.25 2.0-3.6 cm LVPWd: 0.94 0.7-1.1 cm LA Diam: 3.40 2.7-3.8/3.0-4.0 cm LAIDs Index: 1.75 1.5-2.3 cm/m2 LV Mass: 140.36 67-162/88-224 g LV Mass Index: 72.35 43-95/49-115 g/m2 LVOT Diam: 1.90 3.0+(-)1.3 cm 2D Systolic Function EF 4C: 59.20 >55% EF 2C: 71.50 >55% EF BiP: 65.30 >55% Mitral Valve MV Pk E: 1.12 MV PK A: 1.32 MV Decel Time: 238.00 E/A: 0.80 E'Lateral: 7.40 E'Medial: 6.31 E/E' Med: 17.70 E/E' Lat: 15.10 PHT: 70.00 MVA PHT: 3.14 Decel [place]: 4.72 Aortic Valve AoV Pk [place]: 1.81 AoV Mn [place]: 1.21 AoV VTI: 0.33 AoV Pk Grad: 13.00 Aov Mn Grad: 7.00 DAHLIA Cont.VTI: 1.69 LVOT LVOT Pk [place]: 1.04 LVOT Mn [place]: 0.72 LVOT VTI: 0.20 LVOT Pk Grad: 4.00 LVOT Mn Grad: 2.00 LVOT Diam: 1.90 LVOT Area: 2.84 Diastolic Function MV Pk E: 1.12 MV Pk A: 1.32 E/A: 0.80 E'Medial: 6.31 E/E' Med: 17.70 E' Laterial: 7.40 E/E' Lat: 15.10 Right Ventricle TAPSE (mm): 21.70 TVS' [place]: 15.60 Tricuspid Valve TR Pk [place]: 3.01 TR Pk Grad: 36.00 RA Press: 3.00 RVSP: 39.00 Great Vessels Aorta Sinus of Valsalva: 2.90 2.0-3.5 cm Ao Asc: 2.90 2.1-3.4 cm Pulmonary Valve PV Pk [place]: 1.07 Peak PV Grad: 5.00 Updated in Other Vendor System with Status of Final Shaquille Pang MD electronically signed on 05/17/2022 1:07:23 PM with status of Final
[2022-05-16] MEDS: Fluticasone/Vilanterol 100/25 BLST.W.DEV 1 PUFF INHALE (07:49)
[2022-05-16] MEDS: Losartan Potassium 50 MG TABLET 100 MG PO (09:38)
[2022-05-16] MEDS: Omeprazole 20 MG CAPSULE.DR PO (09:38)
[2022-05-16] MEDS: Furosemide 40 MG TABLET PO (09:38)
[2022-05-16] MEDS: Pravastatin Sodium 20 MG TABLET PO (09:39)
[2022-05-16] MEDS: Levothyroxine Sodium 25 MCG TABLET PO (09:39)
[2022-05-16] MEDS: Spironolactone 25 MG TABLET 12.5 MG PO (09:39)
--- NOTE | 2022-05-16 11:02 | HO.PM.IMPN ---
Subjective Subjective Date of Service: 05/16/22 Interval History: Seen and evaluated this morning Improvement overall but still reporting dyspnea with exertion and coughing Weaning oxygen down Denies any fever, chills No reported other overnight events Review of Systems Review of Systems: Yes all other systems are reviewed and are negative Physical Exam Vital Signs: Vital Signs: Last Vital Signs Temp 98.7 F 05/16/22 07:57 Pulse 89 05/16/22 07:57 Resp 20 05/16/22 07:57 BP 137/62 05/16/22 07:57 Pulse Ox 92 05/16/22 07:57 O2 Del Method 05/16/22 07:57 O2 Flow Rate 2 05/15/22 14:55 BMI result Body Mass Index 43.0 Const: Other: Constitutional : Awake, interactive, not in distress Neck : Normal inspection, Supple Cardiovascular : RRR, elevated JVP, trace bilateral lower extremity edema Respiratory : good bilateral air entry, basal fine bilateral crackles, no wheezes or rhonchi Gastrointestinal: soft, lax, Normal bowel sounds, Non tender Skin : Warm, Dry Neurological : Alert & oriented x3, No focal deficit. Objective Data Active Medications Acetaminophen (Acetaminophen 325 Mg Tablet) 650 mg PO Q6H PRN PRN Reason: Pain, Mild (Pain Scale 1-3) Last Admin: 05/15/22 14:13 Dose: 650 mg Documented By: MAGGI Albuterol Sulfate (Albuterol Sulfate 90 Mcg 8 Gm Inhaler) 2 puff INHALE Q4H PRN PRN Reason: Shortness Of Breath Amlodipine Besylate (Amlodipine Besylate 2.5 Mg Tablet) 2.5 mg PO BEDTIME [facility]; Protocol Last Admin: 05/15/22 21:40 Dose: 2.5 mg Documented By: THOMAS Benzonatate (Benzonatate 100 Mg Capsule) 200 mg PO TID PRN PRN Reason: cough Docusate Sodium (Docusate Sodium 100 Mg Capsule) 100 mg PO DAILY PRN PRN Reason: Constipation Enoxaparin Sodium (Enoxaparin Sodium 40 Mg/0.4 Ml Syringe) 40 mg SUBCUT Q24H [facility] Last Admin: 05/15/22 21:35 Dose: 40 mg Documented By: THOMAS Famotidine (Famotidine 20 Mg Tablet) 20 mg PO BEDTIME [facility] Last Admin: 05/15/22 21:35 Dose: 20 mg Documented By: THOMAS Fluticasone/Vilanterol (Fluticasone/Vilanterol 100/25 Blst.W.Dev) 1 puff INHALE RDAILY [facility] Last Admin: 05/16/22 07:49 Dose: 1 puff Documented By: WEN Furosemide (Furosemide 40 Mg Tablet) 40 mg PO DAILY [facility]; Protocol Last Admin: 05/16/22 09:38 Dose: 40 mg Documented By: CAIN Guaifenesin/Dextromethorphan (Guaifenesin Dm 100/10/5 Ml 5 Ml Syrup) 5 ml PO Q4H PRN PRN Reason: Cough Last Admin: 05/15/22 21:41 Dose: 5 ml Documented By: THOMAS Ceftriaxone Sodium 1 gm/ (Sodium Chloride) 50 mls @ 100 mls/hr IV Q24H [facility] Last Infusion: 05/15/22 23:37 Dose: 0 mls/hr Documented By: THOMAS Azithromycin 500 mg/ Sodium (Chloride) 250 mls @ 125 mls/hr IV Q24H [facility] Last Infusion: 05/16/22 02:05 Dose: 0 mls/hr Documented By: THOMAS Levothyroxine Sodium (Levothyroxine Sodium 25 Mcg Tablet) 25 mcg PO DAILY [facility] Last Admin: 05/16/22 09:39 Dose: 25 mcg Documented By: CAIN Losartan Potassium (Losartan Potassium 50 Mg Tablet) 100 mg PO DAILY [facility]; Protocol Last Admin: 05/16/22 09:38 Dose: 100 mg Documented By: CAIN Montelukast Sodium (Montelukast Sodium 10 Mg Tablet) 10 mg PO BEDTIME [facility] Last Admin: 05/15/22 21:35 Dose: 10 mg Documented By: THOMAS Omeprazole (Omeprazole 20 Mg Capsule.Dr) 20 mg PO DAILY [facility] Last Admin: 05/16/22 09:38 Dose: 20 mg Documented By: CAIN Ondansetron HCl (Ondansetron Hcl 4 Mg/2 Ml Vial) 4 mg IVPUSH Q8H PRN PRN Reason: Nausea and Vomiting Pharmacy Consult (Consult Rx Perform Med Rec) 1 each MISCELLANE ONCE PRN PRN Reason: Consult order Pravastatin Sodium (Pravastatin Sodium 20 Mg Tablet) 20 mg PO DAILY [facility] Last Admin: 05/16/22 09:39 Dose: 20 mg Documented By: CAIN Sodium Chloride (0.9 % Sodium Chloride Flush 3 Ml Syringe) 3 ml IVFLUSH QSHIFT [facility] Last Admin: 05/16/22 09:38 Dose: 3 ml Documented By: CAIN Spironolactone (Spironolactone 25 Mg Tablet) 12.5 mg PO DAILY [facility]; Protocol Last Admin: 05/16/22 09:39 Dose: 12.5 mg Documented By: CAIN Labs 05/15/22 05:47 05/15/22 05:47 Microbiology Microbiology Results: Microbiology 05/13/22 20:33 Blood Culture - Preliminary Blood - Venous No growth after 48 hours. 05/13/22 20:33 Blood Culture - Preliminary Blood - Venous No growth after 48 hours. Assessment and Plan (1) Community acquired pneumonia: Status: Acute (2) CHF exacerbation: Status: Acute Plan Pt is an 86-year-old female with a PMH significant for?asthma, allergies, HTN, HLD, hypothyroidism, and CHF who presents to the ED with increasing SOB and cough. Pt will be admitted to the hospital for treatment of further evaluation of CHF exacerbation. Acute CHF exacerbation Secondary to noncompliance Change furosemide to p.o. daily Continue spironolactone daily low sodium diet I/0 Pending Echocardiogram Cardiology input appreciated Wean down oxygen as tolerated Community-acquired pneumonia CT scan showed right lower lobe infiltrate Continue azithromycin and ceftriaxone Negative blood culture Monitor cbc Lower right abdominal pain No more tenderness appreciated on exam CT of abdomen and pelvis not showing any acute findings, likely associated with pneumonia and coughing No cdiff Asthma Patient does not seem to be in acute exacerbation, no wheezing on exam examination Continue home inhalers Hypothyroidism Continue levothyroxine HLD Continue statin HTN Continue amlodipine Full Code DVT Prophylaxis: Lovenox Pt will require a hospitalization overnight for treatment of?CHF exacerbation with IV diuretics and antibiotics for pneumonia Time Spent With Patient Time: Total time managing care of this patient today ____ minutes. Quality Stroke Does the patient have a stroke diagnosis?: No VTE Prior VTE?: No VTE Risk Level:: Medical - moderate - high VTE Device Contraindication: Treatment Not Indicated VTE Drug Contraindication: N/A - Med Ordered
--- NOTE | 2022-05-16 11:48 | MHC.CM.PN ---
PT is now recommending home with services; a new [facility] referral has been made and CM will continue to follow.
[2022-05-16] MEDS: Benzonatate 100 MG CAPSULE 200 MG PO ×3 (12:19→20:22)
[2022-05-16] MEDS: Acetaminophen 325 MG TABLET 650 MG PO (12:50)
[2022-05-16] MEDS: Famotidine 20 MG TABLET PO (20:22)
[2022-05-16] MEDS: amLODIPine Besylate 2.5 MG TABLET PO (20:22)
[2022-05-16] MEDS: Montelukast Sodium 10 MG TABLET PO (20:22)
[2022-05-16] MEDS: Enoxaparin Sodium 40 MG/0.4 ML SYRINGE SUBCUT (20:23)
[2022-05-16] MEDS: cefTRIAXone sodium 1 GM in 0.9 % Sodium Chloride 50 ML IV (21:39)
[2022-05-16] MEDS: guaiFENesin DM 100/10/5 ML 5 ML SYRUP PO (22:25)
[2022-05-17 04:00] VITALS: BP 112/60; PULSE 75; RESP 20; TEMP 36.4; O2SAT 93
[2022-05-17 07:31] VITALS: BP 125/62; PULSE 90; RESP 20; TEMP 36.9; O2SAT 96
[2022-05-17] MEDS: 0.9 % Sodium Chloride Flush 3 ML SYRINGE IVFLUSH (08:20)
[2022-05-17] MEDS: Losartan Potassium 50 MG TABLET 100 MG PO (08:20)
[2022-05-17] MEDS: Spironolactone 25 MG TABLET 12.5 MG PO (08:20)
[2022-05-17] MEDS: Benzonatate 100 MG CAPSULE 200 MG PO (08:22)
[2022-05-17] MEDS: Omeprazole 20 MG CAPSULE.DR PO (08:22)
[2022-05-17] MEDS: Pravastatin Sodium 20 MG TABLET PO (08:22)
[2022-05-17] MEDS: Furosemide 40 MG TABLET PO (08:22)
[2022-05-17] MEDS: Levothyroxine Sodium 25 MCG TABLET PO (08:22)
[2022-05-17] MEDS: Fluticasone/Vilanterol 100/25 BLST.W.DEV 1 PUFF INHALE (09:28)
[2022-05-17 09:29] VITALS: PULSE 87; RESP 16; O2SAT 94
[2022-05-17 11:28] VITALS: BP 115/58; PULSE 84; RESP 20; TEMP 36.5; O2SAT 96
[2022-05-17] MEDS: guaiFENesin DM 100/10/5 ML 5 ML SYRUP PO (12:16)
--- NOTE | 2022-05-17 13:37 | P.DS_ITS ---
DS: Providers Provider Date of Service: 05/17/22 Date of admission: 05/13/22 20:03 Primary care physician: Siddharth Hamlin MD Consults: 05/13/22 20:06 Consult to Cardiology Routine Consulting Provider: Manuel Agudelo Reason for consultation: CHF exacerbation DS: Diagnosis Discharge Diagnosis (1) Community acquired pneumonia: Status: Acute (2) CHF exacerbation: Status: Acute DS: Summary Hospital Course Hospital Course: from initial hpi: Pt is an 86-year-old female with a PMH significant for?asthma, allergies, HTN, HLD, hypothyroidism, and CHF who presents to the ED with increasing SOB and cough. Pt states she developed a cough two weeks ago, occasionally productive of yellowish sputum. Around one week ago she also developed shortness of breath and chest tightness with breathing, especially with exertion. Pt notes when she walks from her building to her car she then has to rest and use her asthma inhaler, though she admits the inhaler doesn't really help. ?Of note, pt stopped taking her furosemide one week ago d/t not wanting to have to go to the bathroom when she was at [facility]. Pt presents today d/t significantly worsening SOB this morning. Pt also experiencing chills on and off for the past two weeks, and pt complains of lower right quadrant abdominal pain that began earlier today. Pt has a history of chronic constipation on daily Miralax, which she stopped one week ago d/t loose stools, which she has been experiencing daily since then. Of note, pt denies a history of CHF, but states she was in the hospital 4-5 years ago for SOB and 30+ lb weight gain after she switched her antihypertensive medication from a diuretic combination pill to an ACEI. Pt was treated with IV Lasix then. Pt In the ED patient was afebrile, but tachypneic up to120 and tachypneic to 28. Labs were significant for leukocytosis of 15.2, H&H of 11.0 over 33.8 elevated BNP of 288. UA negative for UTI. Patient tested negative for influenza types A a nd B, RSV, COVID. CXR showed no acute cardiopulmonary process seen, though there is the possibility of pulmonary edema.. EKG demonstrated sinus tachycardia with no evidence of ST elevations or depressions. Pt was treated with IV Lasix. Pt will be admitted to the hospital for treatment of further evaluation of CHF exacerbation. hospital course: Patient was admitted for acute hypoxic respiratory failure due to acute on chronic diastolic CHF and community-acquired pneumonia. She was treated with IV Lasix and Aldactone was added. Patient diuresed well and shortness of breath improved. She was able to be weaned off oxygen. She was also treated with ceftriaxone azithromycin. Cultures were negative. Patient will be discharged on increased dose of Lasix, 7 more days of Ceftin and azithromycin. For mild intermittent asthma she did not appear to be in acute exacerbation. For hypothyroidism she was continued on Synthroid. For hyperlipidemia she was continued on statin. For hypertension she was continued on amlodipine. Patient is feeling much better will be discharged home. Time Spent with Patient Time attestation: Total time managing care of this patient today ____ minutes. Discharge coordination time: Greater than 30 minutes Quality: Safe Use of Opioids Does Pt have an Active Cancer Diagnosis on the Problem List?: No Quality: Stroke Does the patient have a stroke diagnosis?: No Physical Exam Vital Signs: Vital Signs: Last Vital Signs Temp 97.7 F 05/17/22 11:28 Pulse 84 05/17/22 11:28 Resp 20 05/17/22 11:28 BP 115/58 L 05/17/22 11:28 Pulse Ox 96 05/17/22 11:28 O2 Del Method 05/17/22 11:28 O2 Flow Rate 2 05/15/22 14:55 BMI result Body Mass Index 43.0 Const: Other: Constitutional : Awake, interactive, not in distress Neck : Normal inspection, Supple Cardiovascular : RRR, elevated JVP, trace bilateral lower extremity edema Respiratory : good bilateral air entry, basal fine bilateral crackles, no wheezes or rhonchi Gastrointestinal: soft, lax, Normal bowel sounds, Non tender Skin : Warm, Dry Neurological : Alert & oriented x3, No focal deficit. DS: Data Data Completed and Pending Labs on day of discharge: Preliminary micro results at discharge 05/13/22 20:33 Blood Culture - Preliminary Blood - Venous No growth after 48 hours. 05/13/22 20:33 Blood Culture - Preliminary Blood - Venous No growth after 48 hours. Discharge Plan Discharge Anticipated Discharge Date/Time: 05/17/22 13:30 Patient Disposition: Home, Self-Care Discharge Diagnosis: chf, pna Referrals: Hamlin,Zhongmo, MD [Primary Care Provider] - 1 Week Discharge Medications: New cefuroxime axetil 500 mg tablet 500 mg PO Q12H Qty: 14 0RF azithromycin 500 mg tablet 500 mg PO DAILY Qty: 7 0RF spironolactone 25 mg Tablet 12.5 mg PO DAILY Qty: 30 0RF Protocol: Hold for SBP< HOLD for SBP < : 90 Continued fluticasone propion-salmeterol [Advair Diskus] 250-50 mcg/dose blister with device 1 puff INHALATION BID amlodipine 2.5 mg tablet 1 tab PO BEDTIME levothyroxine 25 mcg tablet 1 tab PO DAILY famotidine 20 mg tablet 1 tab PO BEDTIME pantoprazole 40 mg tablet,delayed release (DR/EC) 1 tab PO DAILY montelukast 10 mg tablet 1 tab PO BEDTIME pravastatin 20 mg tablet 1 tab PO DAILY albuterol sulfate 90 mcg/actuation HFA aerosol inhaler 2 puff inhalation Q4H PRN (Reason: Shortness Of Breath) losartan 100 mg tablet 1 tab PO DAILY Changed furosemide 20 mg tablet 40 mg PO DAILY Qty: 60 0RF Discharge Orders: Discharge Order (Routine); Ordered 05/17/22 Ordered By: Abiel Lindquist Diet: Advance to usual diet Activity on Discharge: As tolerated Stand Alone Forms: Patient Portal Discharge page Care Plan Goals: recovery Health Concerns: chf, pna Plan of Treatment: 7 days abx, increase lasix, start aldactone, follow up with cardiology Assessment: see above
--- NOTE | 2022-05-17 13:50 | MHC.CM.PN ---
Patient has been medically cleared for dc to home today with VNA. A new referral was made to [facility], who has been made aware of today's dc. Last IMM addressed on 05/15/2022.
--- NOTE | 2022-05-17 14:37 | W.MHC.F2F ---
Service Date Service Date: 05/17/22 Encounter Date of encounter: 05/17/22 Reasons for Services Signs and symptoms assessed: weakness Reason for prison: medication management, medication treatment and teach disease management Reason for physical therapy: home safety and mobility, therapeutic exercises and restore joint function Homebound: Leaving the home is medically contraindicated at this time without the asist of a device and/or another person due th the listed conditions above and below. Reason homebound: unsteady gait / fall risk Certification: Based on the above findings, I certify that this patient is confined to the home and needs intermittent prison care, physical therapy and/or speech therapy, or continues to need occupational therapy. The patient is under my care, and I have initiated the establishment of the plan of care. The patient will be followed by a physician who will periodically review the plan of care. Time Spent With Patient Time: Total time managing care of this patient today ____ minutes.
--- NOTE | 2022-05-18 10:35 | MHC.CM.PN ---
BLAS has relayed a message to MD to call Patient's Daughter/Ninfa @ [phone], apparently Ninfa had difficulty obtaining Patient's scripts yesterday. MD confirmed receipt of BLAS's message.
== END 2022-05-17 16:15 | disposition home health service (06) | DRG 291 ==
LOC: HO.ED 17:40 → HO.EDOVER 20:17 → HO.IMC 05-14 17:04
PROVIDERS: Internal Medicine; Physician Assistant Medical; Student in an Organized Health Care Education/Training Program; Admitting Provider Student in an Organized Health Care Education/Training Program; Emergency Provider Student in an Organized Health Care Education/Training Program; PCP Internal Medicine; Visit Provider Internal Medicine
DX: I11.0 Hypertensive heart disease with heart failure (principal); I50.33 Acute on chronic diastolic (congestive) heart failure; J18.9 Pneumonia, unspecified organism; J96.01 Acute respiratory failure with hypoxia; J45.20 Mild intermittent asthma, uncomplicated; E78.5 Hyperlipidemia, unspecified; E03.9 Hypothyroidism, unspecified; Z20.822 Contact with and (suspected) exposure to COVID-19; Z88.0 Allergy status to penicillin; Z88.2 Allergy status to sulfonamides; Z88.6 Allergy status to analgesic agent; Z88.8 Allergy status to other drugs, medicaments and biological substances; Z91.14 Patient's other noncompliance with medication regimen; Z79.51 Long term (current) use of inhaled steroids; Z79.890 Hormone replacement therapy; Z79.899 Other long term (current) drug therapy
CPT/HCPCS: 0241U; 36415; 71046; 71250; 74176; 80048; 80053; 81001; 83605; 83735; 83880; 84484; 85025; 85027; 85610; 87040; 87493; 93005; 93306; 94640; 97161; 99285; J0456; J0696; J1650; J1940; Q9957

== ENCOUNTER → 2022-06-09 14:06 | Outpatient (BNVA) | payer MEDICARE, OTHER, SELFPAY | PROVIDERS: PCP Internal Medicine; Visit Provider Nurse Practitioner Family | DX: I50.30 Unspecified diastolic (congestive) heart failure (principal); I10 Essential (primary) hypertension; E78.5 Hyperlipidemia, unspecified; R06.02 Shortness of breath; R60.9 Edema, unspecified; Z09 Encounter for follow-up examination after completed treatment for conditions other than malignant neoplasm | CPT/HCPCS: 99212 ==

== ENCOUNTER 2022-12-15 08:50 | Outpatient (REF) | payer MEDICARE, OTHER, SELFPAY ==
[2022-12-15 15:15] LABS: Anion Gap 13 (12-20); Blood Urea Nitrogen 29 mg/dL (9-16); Calcium 9.8 mg/dL (8.4-10.2); Carbon Dioxide 26 mmol/L (22-29); Chloride 108 mmol/L (96-108); Estimated Glomerular Filt Rate 37; Glucose Random 160 mg/dL (60-115); Potassium 3.9 mmol/L (3.3-5.1); Sodium 143 mmol/L (135-145)
== END 2022-12-15 08:51 | disposition home or self-care (01) ==
LOC: HO.LAB 08:50
PROVIDERS: PCP Internal Medicine; Referring Provider Internal Medicine; Visit Provider Internal Medicine Cardiovascular Disease
DX: I11.0 Hypertensive heart disease with heart failure (principal); I50.30 Unspecified diastolic (congestive) heart failure
CPT/HCPCS: 36415; 80048; 93005; 99212

== ENCOUNTER 2022-12-15 08:50 | Outpatient (AMB) | payer MEDICARE, OTHER, SELFPAY ==
--- NOTE | 2022-12-15 09:17 | A.OFFVIS_ITS ---
Intake Vital Signs 12/15/22 09:18 Height 4 ft 11 in Weight 171 lb 15.369 oz BMI 34.7 BP 104/64 Blood Pressure Location Lt brachial Position Sitting Pulse 87 Intake Visit Reasons: 6 mth f/up per dc Intake Note: 6 month follow-up per Aurelia c/o sob Registered Veterinary Technician Required: No User Experience Developer: User Experience Developer Present Accompanied by: Daughter Allergies aspirin [ASPIRIN] Allergy (Intermediate, Verified 06/09/22 14:08) BURNING STOMACH lisinopril [LISINOPRIL] Allergy (Unknown, Verified 06/09/22 14:08) COUGH penicillin V Allergy (Unknown, Verified 06/09/22 14:08) Unknown Penicillins [PCN] Allergy (Unknown, Verified 06/09/22 14:08) UNK sulfamethoxazole [From BACTRIM] Allergy (Unknown, Verified 06/09/22 14:08) UNKNOWN trimethoprim [From BACTRIM] Allergy (Unknown, Verified 06/09/22 14:08) UNKNOWN Medication List - Last Reconciled 12/15/22 by Manuel Agudelo MD albuterol sulfate 90 mcg/actuation 2 puffs inhalation Q4H PRN amlodipine 2.5 mg PO BEDTIME famotidine 20 mg PO BEDTIME fluticasone propion-salmeterol 250-50 mcg/dose (Advair Diskus) 1 puff inhalation BID furosemide 50 mg PO DAILY levothyroxine 25 mcg PO DAILY losartan 100 mg PO DAILY montelukast 10 mg PO BEDTIME pantoprazole 40 mg PO DAILY pravastatin 20 mg PO DAILY spironolactone 12.5 mg See Protocol PO DAILY HPI HPI Comments History of Present Illness Details Sudha comes for follow-up. She has been doing well from cardiac perspective. She has been taking all medications. Does not miss her diuretics anymore. Also has lowered her salt intake. Weight is around 179 lb at home on a daily basis without much fluctuation. Blood pressure is controlled. She denies any lightheadedness, syncope. Denies any orthopnea, PND. Does not exercise regularly and has shortness of breath on exertion which is not significantly worse. [facility] Medical History (Updated 12/15/22 @ 09:43 by Manuel Agudelo MD) Diastolic heart failure HTN (hypertension) Surgical History History of hysterectomy History of cholecystectomy History of appendectomy Social History Household Members: Family Housing: House Do you presently have visiting nurse or other home services: No Alcohol intake: never Patient Tobacco Use Status: Never used Tobacco Advance Directives Date on File: 05/13/22 service: No Current occupational status: retired Review of Systems Const Denies chills, Denies fatigue, Denies fever(s), Denies frequent falls, Denies weakness, Denies weight gain and Denies weight loss ENT Denies dizziness Card Denies chest pain, Denies leg edema, Denies lightheadedness, Denies palpitations, Denies dyspnea, Denies dyspnea on exertion, Denies orthopnea and Denies other (loss of consciousness) Resp Denies cough, Denies dyspnea and Denies dyspnea on exertion GI Denies hematochezia and Denies change in stool character Musc Denies abnormal gait, Denies muscle weakness, Denies numbness, Denies radiating pain into limb and Denies tingling Neuro Denies abnormal gait, Denies dizziness, Denies frequent falls, Denies numbness, Denies tingling and Denies weakness Endo Denies fatigue and Denies palpitations Physical Exam Vital Signs: Last Vital Signs Pulse 87 12/15/22 09:18 BP 104/64 12/15/22 09:18 BMI result Body Mass Index 34.7 Const General: cooperative, comfortable, no acute distress, alert and awake Nutritional Appearance: obese Orientation/consciousness: patient oriented x3 Limitations: no limitations Neck Neck: Yes trachea midline, Yes supple and Yes no JVD Resp Effort & Inspection: normal respiratory effort Auscultation: clear to auscultation bilaterally Cardio Jugular venous distension: no JVD Palpation: normal PMI Rate: regular rate Rhythm: regular rhythm Heart sounds: S1 normal heart sound present, S2 normal heart sound present, no click, no gallops and no murmurs GI Auscultation: normal bowel sounds Skin General skin exam: no rashes or lesions noted Neuro General: patient oriented x3 and no focal motor deficits Extrem General: Yes no clubbing, cyanosis or edema Office Procedures EKG Details: EKG shows normal sinus rhythm with poor R-wave progression due to body habitus with nonspecific ST changes 35289-[id number], Complete Assessment & Plan Assessment & Plan (1) Diastolic heart failure: Code(s): I50.30 - Unspecified diastolic (congestive) heart failure Plan: Diastolic heart failure with patient doing well at current time with no signs or symptoms of fluid overload. No progressive symptoms. Has avoid hospitaliz ations. Goals of therapy were discussed. Continue daily weight monitoring avoidance of salt loading. Continue current diuretic dose. Importance of diuretics was discussed. Additional diuretics as need be. Continue participate in physical activity as tolerated. Continue aggressive blood pressure control, see below. Advised to call me with any worsening symptoms. Continue spironolactone for neurohormonal modulation. Will obtain blood work today. (2) HTN (hypertension): Code(s): I10 - Essential (primary) hypertension Plan: Hypertension which is currently well optimized on multiple medications. Continue the same. Currently on losartan, amlodipine as well as spironolactone. Blood pressure is optimized. Advised to monitor blood pressure at home and maintain a log. Goal blood pressure less than 130/84. Will follow up in the clinic in 6 months time, sooner p.r.n.. Thank you for allowing me to partake in her care Orders: Orders Basic Metabolic Panel Today I50.30 - Unspecified diastolic (congestive) heart failure Medications: Changed From furosemide 50 mg PO DAILY To furosemide 40 mg PO DAILY Coding Level of Care Code Est Pt Level 4 (25357) Diagnoses Diastolic heart failure I50.30 HTN (hypertension) I10 CPT Codes EKG - CPT: 38490-[id number], Complete ([id number])
[2022-12-15 09:18] VITALS: BP 104/64; PULSE 87; BMI 34.7
== END 2022-12-15 09:52 | disposition home or self-care (01) ==
PROVIDERS: PCP Internal Medicine; Referring Provider Internal Medicine; Visit Provider Internal Medicine Cardiovascular Disease
DX: I50.30 Unspecified diastolic (congestive) heart failure (principal); I10 Essential (primary) hypertension
CPT/HCPCS: 93010; 99214

== ENCOUNTER 2023-06-20 08:56 | Outpatient (REF) | payer MEDICARE, OTHER, SELFPAY ==
[2023-06-20 10:46] LABS: Anion Gap 12 (12-20); Blood Urea Nitrogen 39 mg/dL (9-16); Calcium 9.6 mg/dL (8.4-10.2); Carbon Dioxide 30 mmol/L (22-29); Chloride 105 mmol/L (96-108); Estimated Glomerular Filt Rate 30; Glucose Random 122 mg/dL (60-115); Potassium 4.8 mmol/L (3.3-5.1); Sodium 142 mmol/L (135-145)
== END 2023-06-20 08:57 | disposition home or self-care (01) ==
LOC: HO.LAB 08:56
PROVIDERS: PCP Internal Medicine; Visit Provider Internal Medicine Cardiovascular Disease
DX: I50.30 Unspecified diastolic (congestive) heart failure (principal); R07.89 Other chest pain; Z79.899 Other long term (current) drug therapy
CPT/HCPCS: 36415; 80048; 99212

== ENCOUNTER 2023-06-20 08:56 | Outpatient (AMB) | payer MEDICARE, OTHER, SELFPAY ==
[2023-06-20 08:59] VITALS: BP 130/70; PULSE 66; BMI 34.7
--- NOTE | 2023-06-20 08:59 | A.OFFVIS_ITS ---
Intake Vital Signs 06/20/23 08:59 Height 4 ft 11 in Weight 171 lb 15.369 oz BMI 34.7 BP 130/70 Blood Pressure Location Lt brachial Position Sitting Pulse 66 Intake Visit Reasons: 6 mth fu Intake Note: 6 month follow-up feeling ok c/o sob mostly with walking Supervisor Feed House Required: No Freight Delivery Driver: Freight Delivery Driver Present Accompanied by: Daughter Allergies aspirin [ASPIRIN] Allergy (Intermediate, Verified 06/09/22 14:08) BURNING STOMACH lisinopril [LISINOPRIL] Allergy (Unknown, Verified 06/09/22 14:08) COUGH penicillin V Allergy (Unknown, Verified 06/09/22 14:08) Unknown Penicillins [PCN] Allergy (Unknown, Verified 06/09/22 14:08) UNK sulfamethoxazole [From BACTRIM] Allergy (Unknown, Verified 06/09/22 14:08) UNKNOWN trimethoprim [From BACTRIM] Allergy (Unknown, Verified 06/09/22 14:08) UNKNOWN Medication List - Last Reconciled 06/20/23 by Manuel Agudelo MD albuterol sulfate 90 mcg/actuation 2 puffs inhalation Q4H PRN amlodipine 2.5 mg PO BEDTIME famotidine 20 mg PO BEDTIME furosemide 40 mg PO DAILY levothyroxine 25 mcg PO DAILY losartan 100 mg PO DAILY pantoprazole 40 mg PO DAILY pravastatin 20 mg PO DAILY spironolactone 12.5 mg See Protocol PO DAILY HPI HPI Comments History of Present Illness Details Sudha comes for follow-up. From heart failure perspective she has been doing well. She weighs herself on a regular basis and her weight has been stable. She takes a water pill on a regular basis. No worsening symptoms of orthopnea, PND, leg edema. No abdominal distension. She does get exertional shortness of breath. Has she also notices that when she gets anxious she gets epigastric lower retrosternal knot like feeling. Symptoms usually last for 15- 20 minutes and subside on their own. The last time she got this feeling was when she was trying to get the MRI done and she got anxious about it. She denies any prolonged palpitation irregular heartbeat. No lightheadedness, syncope. [facility] Medical History Diastolic heart failure HTN (hypertension) Surgical History History of hysterectomy History of cholecystectomy History of appendectomy Social History Household Members: Family Housing: House Do you presently have visiting nurse or other home services: No Alcohol intake: never Patient Tobacco Use Status: Never used Tobacco Advance Directives Date on File: 05/13/22 service: No Current occupational status: retired Review of Systems Const Denies chills, Denies fatigue, Denies fever(s), Denies frequent falls, Denies weakness, Denies weight gain and Denies weight loss ENT Denies dizziness Card Denies chest pain, Denies leg edema, Denies lightheadedness, Denies palpitations, Denies dyspnea, Denies dyspnea on exertion, Denies orthopnea and Denies other (loss of consciousness) Resp Denies cough, Denies dyspnea and Denies dyspnea on exertion GI Denies hematochezia and Denies change in stool character Musc Denies abnormal gait, Denies muscle weakness, Denies numbness, Denies radiating pain into limb and Denies tingling Neuro Denies abnormal gait, Denies dizziness, Denies frequent falls, Denies numbness, Denies tingling and Denies weakness Endo Denies fatigue and Denies palpitations Physical Exam Vital Signs: Last Vital Signs Pulse 66 06/20/23 08:59 BP 130/70 06/20/23 08:59 BMI result Body Mass Index 34.7 Const General: cooperative, comfortable, no acute distress, alert and awake Nutritional Appearance: obese Orientation/consciousness: patient oriented x3 Limitations: no limitations Neck Neck: Yes trachea midline, Yes supple and Yes no JVD Resp Effort & Inspection: normal respiratory effort Auscultation: clear to auscultation bilaterally Cardio Jugular venous distension: no JVD Palpation: normal PMI Rate: regular rate Rhythm: regular rhythm Heart sounds: S1 normal heart sound present, S2 normal heart sound present, no click, no gallops and no murmurs GI Auscultation: normal bowel sounds Skin General skin exam: no rashes or lesions noted Neuro General: patient oriented x3 and no focal motor deficits Extrem General: Yes no clubbing, cyanosis or edema Assessment & Plan Assessment & Plan (1) Atypical chest pain: Code(s): R07.89 - Other chest pain Plan: Atypical chest pain this elderly woman as well as symptoms exertional shortness of risk factors. Symptoms happening under stressful situation and/or anxiety. There is likelihood of underlying myocardial ischemia and CAD. Will suggest her to go vasodilating myocardial perfusion imaging in near future to assess for the same. Further treatment based on the findings. If this is negative workup for acid reflux disease and/or treatment for anxiety should be pursued. (2) Diastolic heart failure: Code(s): I50.30 - Unspecified diastolic (congestive) heart failure Plan: Diastolic heart failure has done well clinically. She is managing her symptoms well. Continue to pursue daily weight monitoring avoidance of salt loading. Continue current diuretic regimen as well as low-dose spironolactone therapy. Will check for basic metabolic profile today to evaluate renal function as well as potassium level. Management plans and goals were discussed. Avoidance of hospitalization as 1 other goals were discussed. Follow up in the clinic in 6 months time, sooner p.r.n.. Thank you for allowing me to partake in her care Coding Level of Care Code Est Pt Level 4 (10487) Diagnoses Atypical chest pain R07.89 Diastolic heart failure I50.30
== END 2023-06-20 09:22 | disposition home or self-care (01) ==
PROVIDERS: PCP Internal Medicine; Visit Provider Internal Medicine Cardiovascular Disease
DX: R07.89 Other chest pain (principal); I50.30 Unspecified diastolic (congestive) heart failure
CPT/HCPCS: 99214

== ENCOUNTER 2023-07-07 09:53 | Outpatient (REF) | payer MEDICARE, OTHER, SELFPAY ==
[2023-07-07 11:41] LABS: Anion Gap 12 (12-20); Blood Urea Nitrogen 21 mg/dL (9-16); Calcium 9.7 mg/dL (8.4-10.2); Carbon Dioxide 27 mmol/L (22-29); Chloride 107 mmol/L (96-108); Estimated Glomerular Filt Rate 53; Glucose Random 121 mg/dL (60-115); Sodium 142 mmol/L (135-145)
== END 2023-07-07 09:54 | disposition home or self-care (01) ==
LOC: HO.LAB 09:53
PROVIDERS: Visit Provider Internal Medicine Cardiovascular Disease
DX: I11.0 Hypertensive heart disease with heart failure (principal); I50.30 Unspecified diastolic (congestive) heart failure
CPT/HCPCS: 36415; 80048

== ENCOUNTER 2023-12-26 09:11 | Outpatient (AMB) | payer MEDICARE, OTHER, SELFPAY ==
[2023-12-26 09:21] VITALS: BP 120/80; PULSE 77; BMI 34.7
--- NOTE | 2023-12-26 09:21 | A.OFFVIS_ITS ---
Vital Signs 12/26/23 09:21 Height 4 ft 11 in Weight 171 lb 15.369 oz BMI 34.7 BP 120/80 Blood Pressure Location Lt brachial Position Sitting Pulse 77 Intake Visit Reasons: 6 mth f/up Intake Note: 6 month follow-up with ekg feeling good Manager Grocery Required: No Rough Rice Tender: Rough Rice Tender Present Accompanied by: Daughter Allergies aspirin [ASPIRIN] Allergy (Intermediate, Verified 06/09/22 14:08) BURNING STOMACH lisinopril [LISINOPRIL] Allergy (Unknown, Verified 06/09/22 14:08) COUGH penicillin V Allergy (Unknown, Verified 06/09/22 14:08) Unknown Penicillins [PCN] Allergy (Unknown, Verified 06/09/22 14:08) UNK sulfamethoxazole [From BACTRIM] Allergy (Unknown, Verified 06/09/22 14:08) UNKNOWN trimethoprim [From BACTRIM] Allergy (Unknown, Verified 06/09/22 14:08) UNKNOWN Medication List - Last Reconciled 12/26/23 by Manuel Agudelo MD albuterol sulfate 90 mcg/actuation 2 puffs inhalation Q4H PRN amlodipine 2.5 mg PO BEDTIME famotidine 20 mg PO BEDTIME furosemide 20 mg PO DAILY levothyroxine 25 mcg PO DAILY losartan 100 mg PO DAILY pantoprazole 40 mg PO DAILY pravastatin 20 mg PO DAILY HPI Comments Details: Sudha comes for follow-up. She denies any new symptoms. Continues to exertional shortness of breath but this is unchanged. Denies any orthopnea, PND, weight gain, leg edema, abdominal distension. Takes 20 mg of furosemide every day. Denies any exertional chest pain. Continues to have intermittent chest pain which relieved with burping as per her. She does not want to undergo a stress test as she is afraid [facility] Medical History Diastolic heart failure HTN (hypertension) Surgical History History of hysterectomy History of cholecystectomy History of appendectomy Social History Household Members: Family Housing: House Do you presently have visiting nurse or other home services: No Alcohol intake: never Patient Tobacco Use Status: Never used Tobacco Advance Directives Date on File: 05/13/22 service: No Current occupational status: retired Review of Systems Const Denies chills, Denies fatigue, Denies fever(s), Denies frequent falls, Denies weakness, Denies weight gain and Denies weight loss ENT Denies dizziness Card Denies chest pain, Denies leg edema, Denies lightheadedness, Denies palpitations, Denies dyspnea, Denies dyspnea on exertion, Denies orthopnea and Denies other (loss of consciousness) Resp Denies cough, Denies dyspnea and Denies dyspnea on exertion GI Denies hematochezia and Denies change in stool character Musc Denies abnormal gait, Denies muscle weakness, Denies numbness, Denies radiating pain into limb and Denies tingling Neuro Denies abnormal gait, Denies dizziness, Denies frequent falls, Denies numbness, Denies tingling and Denies weakness Endo Denies fatigue and Denies palpitations Physical Exam Vital Signs: Last Vital Signs Pulse 77 12/26/23 09:21 BP 120/80 12/26/23 09:21 BMI result Body Mass Index 34.7 Const General: cooperative, comfortable, no acute distress, alert and awake Nutritional Appearance: obese Orientation/consciousness: patient oriented x3 Limitations: no limitations Neck Neck: Yes trachea midline, Yes supple and Yes no JVD Resp Effort & Inspection: normal respiratory effort Auscultation: clear to auscultation bilaterally Cardio Jugular venous distension: no JVD Palpation: normal PMI Rate: regular rate Rhythm: regular rhythm Heart sounds: S1 normal heart sound present, S2 normal heart sound present, no click, no gallops and no murmurs GI Auscultation: normal bowel sounds Skin General skin exam: no rashes or lesions noted Neuro General: patient oriented x3 and no focal motor deficits Extrem General: Yes no clubbing, cyanosis or edema Office Procedures EKG Details: EKG shows normal sinus rhythm with right bundle-branch block at 79 beats per minute [id number], Complete Assessment & Plan Assessment & Plan (1) Diastolic heart failure: Code(s): I50.30 - Unspecified diastolic (congestive) heart failure Category: Medical Plan: Heart failure preserved ejection fraction/diastolic heart failure clinically doing well with no significant fluid overload. Continue current diuretic dose. Importance regular diuretic regimen was discussed. Continue daily weight monitoring avoidance of salt loading. Advised to take extra Lasix when she gained sudden weight gain. Continue aggressive blood pressure control. This is currently well optimized on current therapy. Importance of good blood pressure control was discussed. Advised to call me change in chest pain pattern that may require further workup. She is currently not interested. Encouraged to maintain activity level as tolerated. Will follow up in the clinic in 1 year's time, sooner p.r.n.. Thank you for allowing me to partake in her care Coding Level of Care Code Est Pt Level 4 (35109) Diagnoses Diastolic heart failure I50.30 CPT Codes EKG - CPT: 85898-[id number], Complete ([id number])
== END 2023-12-26 10:02 | disposition home or self-care (01) ==
PROVIDERS: PCP Internal Medicine; Visit Provider Internal Medicine Cardiovascular Disease
DX: I50.30 Unspecified diastolic (congestive) heart failure (principal)
CPT/HCPCS: 93010; 99214

== ENCOUNTER → 2023-12-26 09:11 | Outpatient (BNVA) | payer MEDICARE, OTHER, SELFPAY | PROVIDERS: PCP Internal Medicine; Visit Provider Internal Medicine Cardiovascular Disease | DX: I50.30 Unspecified diastolic (congestive) heart failure (principal) | CPT/HCPCS: 93005; 99212 ==